=== PATIENT | female | born 1930 | race Caucasian/White ===

== ENCOUNTER 2017-05-10 08:13 | Inpatient (IN) ==
[2017-05-10] MEDS ORDERED: ALBUTEROL/IPRATROPIUM 2.5mg-0.5mg/3ml NEB AEROSOL ONE (08:29)
[2017-05-10] MEDS: SALINE FLUSH 10ml SYRINGE IVF PRN ×3 (08:41→20:10)
--- OUTSIDE RECORDS SUMMARY | 2017-05-10 08:44 | External Medical Summary | Referral Summary ---
:1930 Author Organization [facility] [address] [address] [place] [phone] Care Team Providers Name Role Phone Alan Butt V Primary Care Physician Encounter VC Date(s): 02/18/15 - 02/18/15 [facility] [address] [place] [phone] Discharge Diagnosis: Thrombocytosis Discharge Diagnosis: Dysuria Discharge Diagnosis: Asthma Discharge Diagnosis: Benign essential hypertension Discharge Diagnosis: GERD (gastroesophageal reflux disease) Discharge Diagnosis: Fatigue Discharge Diagnosis: Hyperlipidemia Discharge Disposition: 01-Home or Self Care Attending Physician: Alan Butt MD Admitting Physician: Alan Butt MD Vital Signs Most recent to oldest [Reference Range]: 1 Temperature Tympanic [36.6-38.1 degC] 36.8 degC (02/18/15 9:52 AM) Peripheral Pulse Rate [60-100 bpm] 69 bpm (02/18/15 9:52 AM) Blood Pressure [90-140/60-90 mmHg] 139/81 mmHg (02/18/15 9:52 AM) Problem List Condition Effective Dates Status Health Status Informant Asthma(Confirmed) Active Balance problem(Confirmed) Active Benign essential hypertension Active (disorder)(Confirmed) Hyperplastic polyps(Confirmed) Active Diverticulosis(Confirmed) Active Exacerbation of asthma Active (disorder)(Confirmed) Gastroesophageal reflux disease Resolved (disorder)(Confirmed) GERD (gastroesophageal reflux Active disease)(Confirmed) Hemorrhoids(Confirmed) Active Hypercholesterolemia(Confirmed) Active Hyperlipidemia(Confirmed) Active Hypertension(Confirmed) Active Obesity(Confirmed) Active patient Pure hypercholesterolemia Active (disorder)(Confirmed) Thrombocytosis-essential(Confirmed) Active Allergies, Adverse Reactions, Alerts No Known Medication Allergies Medications Advair Diskus 500 mcg-50 mcg inhalation powder 1 puffs, Inhalation, BID, # 60 Each, 11 Refill(s), Pharmacy: [facility] # [id number] Start Date: 02/18/15 Status: OrderedAspirin Low Dose 81 mg, Oral, Daily, 0 Refill(s) Start Date: 04/23/14 Status: OrderedCalcium 600+D 1 tabs, Oral, Daily, 0 Refill(s) Start Date: 04/23/14 Status: Orderedhydrochlorothiazide 25 mg oral tablet See Instructions, TAKE ONE TABLET BY MOUTH EVERY DAY, # 100 tabs, 1 Refill(s), eRx: [facility]#[id number], TAKE ONE TABLET BY MOUTH EVERY DAY Start Date: 09/17/14 Status: OrderedKlor-Con 10 oral tablet, extended release See Instructions, TAKE ONE TABLET BY MOUTH EVERY DAY, # 90 unknown unit, 1 Refill(s), eRx: [facility] #[id number], TAKE ONE TABLET BY MOUTH EVERY DAY Start Date: 03/12/15 Status: Orderedmultivitamin 1 tabs, Oral, Daily, 0 Refill(s) Start Date: 04/23/14 Status: OrderedNorvasc 5 mg oral tablet See Instructions, TAKE ONE TABLET BY MOUTH EVERY DAY, # 90 tabs, 11 Refill(s), eRx: [facility]#[id number], TAKE ONE TABLET BY MOUTH EVERY DAY Start Date: 09/16/14 Status: Orderedpravastatin 20 mg oral tablet See Instructions, TAKE ONE TABLET BY MOUTH EVERY DAY, # 90 tabs, 2 Refill(s), Pharmacy: [facility] #[id number], TAKE ONE TABLET BY MOUTH EVERY DAY Start Date: 05/20/14 Status: OrderedVitamin B-12 500 mcg, Oral, Daily, 0 Refill(s) Start Date: 04/23/14 Status: Ordered Results No data available for this section Immunizations Vaccine Date Refusal Reason influenza virus vaccine, inactivated 04/24/14 influenza virus vaccine, live 05/16/13 influenza virus vaccine, live 03/29/12 pneumococcal 13-valent conjugate vaccine 11/12/14 pneumococcal 23-polyvalent vaccine 05/14/07 tetanus-diphth toxoids (Td) adult/adol 05/18/08 zoster vaccine live 11/12/14 Procedures Procedure Date Related Diagnosis Body Site Colonoscopy 05/28/08 Polypectomy 11/20/08 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 Will increase her Advair Diskus back to 500/50 and she may use the albuterol on a when necessary basis. Benign essential hypertension Dysuria Check urinalysis Ordered: Urinalysis with Culture if Indicated Fatigue Ordered: Basic Metabolic Panel CBC w/ Differential TSH with Reflex Free T4 GERD (gastroesophageal reflux disease) Hyperlipidemia Ordered: Lipid Panel Thrombocytosis Orders: fluticasone-salmeterol, 1 puffs, Inhalation, BID, # 60 Each, 11 Refill(s), Pharmacy: [facility] #[id number] Check labs as above. She will come in fasting another day for those to be drawn. Otherwise continue present care. Follow-up 6 months if all goes well.
--- OUTSIDE RECORDS SUMMARY | 2017-05-10 08:44 | External Medical Summary | Referral Summary ---
:1930 Author Organization [facility], [facility] Address [address] [place] [address] [place] [phone] Care Team Providers Name Role Phone Alan Butt Zara Primary Care Physician Encounter VC Date(s): 04/04/16 - 04/04/16 [address] [address] [place] [phone] [place] Discharge Disposition: 01-Home or Self Care Attending Physician: Mustapha Rubin APRN Admitting Physician: Mustapha Rubin APRN Vital Signs Most recent to oldest [Reference Range]: 1 Temperature Tympanic [36.6-38.1 degC] 36.9 degC (04/04/16 10:11 AM) Peripheral Pulse Rate [60-100 bpm] 71 bpm (04/04/16 10:11 AM) Respiratory Rate [14-20 br/min] 16 br/min (04/04/16 10:11 AM) Blood Pressure [90-140/60-90 mmHg] 138/88 mmHg (04/04/16 10:11 AM) SpO2 97 % (04/04/16 10:11 AM) Problem List Condition Effective Dates Status Health Status Informant Asthma(Confirmed) < 05/04/14 Resolved Balance problem(Confirmed) Active Benign essential hypertension Active (disorder)(Confirmed) Hyperplastic polyps(Confirmed) Active Diverticulosis(Confirmed) Active Exacerbation of asthma Resolved (disorder)(Confirmed) Gastroesophageal reflux disease Resolved (disorder)(Confirmed) GERD (gastroesophageal reflux Active disease)(Confirmed) Hemorrhoids(Confirmed) < 05/04/14 Resolved Hypercholesterolemia(Confirmed) < 05/04/14 Resolved Hyperlipidemia(Confirmed) Active Hypertension(Confirmed) < 05/04/14 Resolved Obesity(Confirmed) Active patient Pure hypercholesterolemia Resolved (disorder)(Confirmed) Thrombocytosis-essential(Confirmed) Active Allergies, Adverse Reactions, Alerts No Known Medication Allergies Medications Advair Diskus 500 mcg-50 mcg inhalation powder 1 puffs, Inhalation, BID, # 60 Each, 11 Refill(s), Pharmacy: [facility] # [id number] Start Date: 02/22/16 Status: OrderedAspirin Low Dose 81 mg, Oral, Daily, 0 Refill(s) Start Date: 04/23/14 Status: OrderedCalcium 600+D 1 tabs, Oral, Daily, 0 Refill(s) Start Date: 04/23/14 Status: OrderedFosamax 70 mg oral tablet 70 mg 1 tabs, Oral, qWeek, # 12 tabs, 3 Refill(s), Pharmacy: [facility] # [id number], 1 tabs Oral qWeek Start Date: 02/22/16 Status: Orderedhydrochlorothiazide 25 mg oral tablet See Instructions, TAKE ONE TABLET BY MOUTH EVERY DAY, # 100 tabs, eRx: [facility] #[id number], TAKE ONE TABLET BY MOUTH EVERY DAY Start Date: 09/23/15 Status: OrderedKlor-Con 10 oral tablet, extended release See Instructions, TAKE ONE TABLET BY MOUTH EVERY DAY, # 90 unknown unit, 1 Refill(s), eRx: [facility] #[id number], TAKE ONE TABLET BY MOUTH EVERY DAY Start Date: 03/12/15 Status: Orderedmultivitamin 1 tabs, Oral, Daily, 0 Refill(s) Start Date: 04/23/14 Status: OrderedNorvasc 5 mg oral tablet See Instructions, TAKE ONE TABLET BY MOUTH EVERY DAY, # 90 tabs, 10 Refill(s), eRx: [facility]#[id number], TAKE ONE TABLET BY MOUTH EVERY DAY Start Date: 09/23/15 Status: Orderedpravastatin 40 mg oral tablet 40 mg 1 tabs, Oral, Daily, # 1 tabs, 0 Refill(s), other reason (Rx) Start Date: 02/24/16 Status: OrderedVitamin B-12 500 mcg, Oral, Daily, 0 Refill(s) Start Date: 04/23/14 Status: OrderedVitamin D3 0 Refill(s) Start Date: 09/27/15 Status: Ordered Results No data available for this section Immunizations Vaccine Date Refusal Reason influenza virus vaccine, inactivated 04/24/14 influenza virus vaccine, live 05/16/13 influenza virus vaccine, live 03/29/12 pneumococcal 13-valent conjugate vaccine 11/12/14 pneumococcal 23-polyvalent vaccine 05/14/07 tetanus-diphth toxoids (Td) adult/adol 05/18/08 zoster vaccine live 11/12/14 Procedures Procedure Date Related Diagnosis Body Site Colonoscopy 05/28/08 Polypectomy 05/28/08 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
--- OUTSIDE RECORDS SUMMARY | 2017-05-10 08:45 | External Medical Summary | Referral Summary ---
:1930 Author Organization [facility], [facility] Address [address] [place] [address] [place] [phone] Care Team Providers Name Role Phone Alan Butt V Primary Care Physician Encounter VC Date(s): 03/06/16 - 03/06/16 [address] [address] [place] [phone] [place] Discharge Disposition: 01-Home or Self Care Attending Physician: Mustapha Rubin APRN Admitting Physician: Mustapha Rubin APRN Vital Signs Most recent to oldest [Reference Range]: 1 Temperature Tympanic [36.6-38.1 degC] 36.9 degC (03/06/16 10:16 AM) Peripheral Pulse Rate [60-100 bpm] 72 bpm (03/06/16 10:16 AM) Respiratory Rate [14-20 br/min] 17 br/min (03/06/16 10:16 AM) Blood Pressure [90-140/60-90 mmHg] 128/78 mmHg (03/06/16 10:16 AM) SpO2 98 % (03/06/16 10:16 AM) Problem List Condition Effective Dates Status [...] BID, # 60 Each, 11 Refill(s), Pharmacy: [facility] # [id number] Start Date: 02/22/16 Status: OrderedAspirin Low Dose 81 mg, Oral, Daily, 0 Refill(s) Start Date: 04/23/14 Status: OrderedCalcium 600+D 1 tabs, Oral, Daily, 0 Refill(s) Start Date: 04/23/14 Status: OrderedFosamax 70 mg oral tablet 70 mg 1 tabs, Oral, qWeek, # 12 tabs, 3 Refill(s), Pharmacy: [facility] # [id number], 1 tabs Oral qWeek Start Date: 02/22/16 Status: Orderedhydrochlorothiazide 25 mg oral tablet See Instructions, TAKE ONE TABLET BY MOUTH EVERY DAY, # 100 tabs, eRx: [facility] #[id number], TAKE ONE TABLET BY MOUTH EVERY DAY Start Date: 09/23/15 Status: OrderedKlor-Con 10 oral tablet, extended release See Instructions, TAKE ONE TABLET BY MOUTH EVERY DAY, # 90 unknown unit, 1 Refill(s), eRx: [facility] #[id number], TAKE ONE TABLET BY MOUTH EVERY DAY Start Date: 03/12/15 Status: Orderedmultivitamin 1 tabs, Oral, Daily, 0 Refill(s) Start Date: 04/23/14 Status: OrderedNorvasc 5 mg oral tablet See Instructions, TAKE ONE TABLET BY MOUTH EVERY DAY, # 90 tabs, 10 Refill(s), eRx: [facility]#[id number], TAKE ONE TABLET BY MOUTH EVERY DAY [...]
--- OUTSIDE RECORDS SUMMARY | 2017-05-10 08:45 | External Medical Summary | Referral Summary ---
:1930 Author Organization [facility], [facility] Address [address] [place] [address] [place] [phone] Care Team Providers Name Role Phone Alan Butt V Primary Care Physician Encounter VC Date(s): 02/22/16 - 02/22/16 [address] [place] [phone]- Discharge Diagnosis: Thyroid nodule Discharge Diagnosis: Benign essential hypertension Discharge Diagnosis: GERD (gastroesophageal reflux disease) Discharge Diagnosis: Osteoporosis Discharge Diagnosis: Mild persistent stable asthma Discharge Diagnosis: Hyperlipidemia Discharge Diagnosis: Obesity Discharge Diagnosis: Senile atrophic vaginitis Discharge Disposition: 01-Home or Self Care Attending Physician: Alan Butt MD Admitting Physician: Alan Butt MD Vital Signs Most recent to oldest [Reference Range]: 1 Temperature Tympanic [36.6-38.1 degC] 36.2 degC *LOW* (02/22/16 9:00 AM) Peripheral Pulse Rate [60-100 bpm] 84 bpm (02/22/16 9:00 AM) Blood Pressure [90-140/60-90 mmHg] 142/84 mmHg *HI* (02/22/16 9:00 AM) Problem List Condition Effective Dates Status [...] BID, # 60 Each, 11 Refill(s), Pharmacy: [facility] # [id number] Start Date: 02/22/16 Status: OrderedAspirin Low Dose 81 mg, Oral, Daily, 0 Refill(s) Start Date: 04/23/14 Status: OrderedCalcium 600+D 1 tabs, Oral, Daily, 0 Refill(s) Start Date: 04/23/14 Status: OrderedFosamax 70 mg oral tablet 70 mg 1 tabs, Oral, qWeek, # 12 tabs, 3 Refill(s), Pharmacy: [facility] # [id number], 1 tabs Oral qWeek Start Date: 02/22/16 Status: Orderedhydrochlorothiazide 25 mg oral tablet See Instructions, TAKE ONE TABLET BY MOUTH EVERY DAY, # 100 tabs, eRx: [facility] #[id number], TAKE ONE TABLET BY MOUTH EVERY DAY Start Date: 09/23/15 Status: OrderedKlor-Con 10 oral tablet, extended release See Instructions, TAKE ONE TABLET BY MOUTH EVERY DAY, # 90 unknown unit, 1 Refill(s), eRx: [facility] #[id number], TAKE ONE TABLET BY MOUTH EVERY DAY Start Date: 03/12/15 Status: Orderedmultivitamin 1 tabs, Oral, Daily, 0 Refill(s) Start Date: 04/23/14 Status: OrderedNorvasc 5 mg oral tablet See Instructions, TAKE ONE TABLET BY MOUTH EVERY DAY, # 90 tabs, 10 Refill(s), eRx: [facility]#[id number], TAKE ONE TABLET BY MOUTH EVERY DAY Start Date: 09/23/15 Status: OrderedNorvasc 5 mg oral tablet See Instructions, TAKE ONE TABLET BY MOUTH EVERY DAY, # 90 tabs, 11 Refill(s), eRx: [facility]#[id number], TAKE ONE TABLET BY MOUTH EVERY DAY Start Date: 09/16/14 Status: Orderedpravastatin 20 mg oral tablet See Instructions, TAKE ONE TABLET BY MOUTH DAILY, # 90 tabs, 1 Refill(s), eRx: [facility] #[id number], TAKE ONE TABLET BY MOUTH DAILY Start Date: 11/30/15 Status: OrderedVitamin B-12 500 mcg, Oral, Daily, 0 Refill(s) Start Date: 04/23/14 Status: OrderedVitamin D3 0 Refill(s) Start Date: 09/27/15 Status: Ordered Results Chemistry Most recent to oldest [Reference Range]: 1 Sodium Lvl [135-144 mEq/L] 141 mEq/L (02/22/16 9:54 AM) Potassium Lvl [3.5-5.2 mEq/L] 4.4 mEq/L (02/22/16 9:54 AM) Chloride [99-111 mEq/L] 105 mEq/L (02/22/16 9:54 AM) CO2 [22-31 mEq/L] 27 mEq/L (02/22/16 9:54 AM) AGAP [3-20] 9 (02/22/16 9:54 AM) BUN [10-20 mg/dL] 19 mg/dL (02/22/16 9:54 AM) Glucose Lvl [70-99 mg/dL] 97 mg/dL (02/22/16 9:54 AM) Creatinine Lvl [0.57-1.11 mg/dL] 0.85 mg/dL (02/22/16 9:54 AM) eGFR [>60 mL/min] >60 mL/min 1 (02/22/16 9:54 AM) Calcium Lvl [8.9-10.5 mg/dL] 9.6 mg/dL (02/22/16 9:54 AM) Chol [0-199 mg/dL] 216 mg/dL *HI* (02/22/16 9:54 AM) Trig [0-149 mg/dL] 101 mg/dL (02/22/16 9:54 AM) HDL [40-84 mg/dL] 56 mg/dL (02/22/16 9:54 AM) LDL [0-130 mg/dL] 140 mg/dL *HI* (02/22/16 9:54 AM) VLDL Cholesterol [0-28 mg/dL] 20 mg/dL (02/22/16 9:54 AM) Cardiac Risk [0.0-5.0] 3.9 (02/22/16 9:54 AM) TSH with Reflex Free T4 [0.35-4.94] 2.48 (02/22/16 9:54 AM) 1Result Comment: Multiply eGFR results by 1.21 for race. Immunizations Vaccine Date Refusal Reason influenza virus vaccine, inactivated 04/24/14 influenza virus vaccine, live 05/16/13 influenza virus vaccine, live 03/29/12 pneumococcal 13-valent conjugate vaccine 11/12/14 pneumococcal 23-polyvalent vaccine 05/14/07 tetanus-diphth toxoids (Td) adult/adol 05/18/08 zoster vaccine live 11/12/14 Procedures Procedure Date Related Diagnosis Body Site Colonoscopy 05/28/08 Polypectomy 05/28/08 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 Colonoscopy 1998 Tonsillectomy 1939 Cataract extraction bilateral ORIF - Open reduction and internal fixation of fracture Lt leg Social History Social History Type Response Smoking Status Never smoker Assessment and Plan Extracted from: Title: 6 Month CDM Author: Alan Butt MD Date: 02/22/16 Impression and Plan Diagnosis Thyroid nodule (BPY21-UI E04.1, Discharge, Medical). Senile atrophic vaginitis (OLF56-ZP N95.2, Discharge, Medical). Osteoporosis (KOU66-NR M81.0, Discharge, Medical). Obesity (RMZ21-EQ E66.9, Discharge, Medical). Mild persistent stable asthma (TOA62-FQ J45.30, Discharge, Medical). Hyperlipidemia (BYP95-HK E78.5, Discharge, Medical). GERD (gastroesophageal reflux disease) (DFU38-NQ K21.9, Discharge, Medical). Benign essential hypertension (YZP11-IF I10, Discharge, Medical). Orders Orders (Selected) Outpatient Orders Future (On Hold) BMP: Fasting Lipid Profile: TSH with Reflex Free T4: Vitamin D 25 Hydroxy Level: Prescriptions Prescribed Advair Diskus 500 mcg-50 mcg inhalation powder: 1 puffs, Inhalation, BID, 60 Each, 11 Refill(s) Fosamax 70 mg oral tablet: 70 mg=1 tabs, Oral, qWeek, 12 tabs, 3 Refill(s).
--- OUTSIDE RECORDS SUMMARY | 2017-05-10 08:45 | External Medical Summary | Referral Summary ---
:1930 Author Organization [facility] [address] [place] [phone] Care Team Providers Name Role Phone Alan Butt V Primary Care Physician Encounter VC Date(s): 02/18/15 - 02/18/15 [facility] [address] [address] [place] [phone] [place] Discharge Diagnosis: [...] BID, # 60 Each, 11 Refill(s), Pharmacy: [facility] # [id number] Start Date: 02/18/15 Status: OrderedAspirin Low Dose 81 mg, Oral, Daily, 0 Refill(s) Start Date: 04/23/14 Status: OrderedCalcium 600+D 1 tabs, Oral, Daily, 0 Refill(s) Start Date: 04/23/14 Status: Orderedhydrochlorothiazide 25 mg oral tablet See Instructions, TAKE ONE TABLET BY MOUTH EVERY DAY, # 100 tabs, 1 Refill(s), eRx: [facility]#[id number], TAKE ONE TABLET BY MOUTH EVERY DAY Start Date: 09/17/14 Status: OrderedKlor-Con 10 oral tablet, extended release See Instructions, TAKE ONE TABLET BY MOUTH EVERY DAY, # 90 unknown unit, 1 Refill(s), eRx: [facility] #[id number], TAKE ONE TABLET BY MOUTH EVERY DAY Start Date: 03/12/15 Status: Orderedmultivitamin 1 tabs, Oral, Daily, 0 Refill(s) Start Date: 04/23/14 Status: OrderedNorvasc 5 mg oral tablet See Instructions, TAKE ONE TABLET BY MOUTH EVERY DAY, # 90 tabs, 11 Refill(s), eRx: [facility]#[id number], TAKE ONE TABLET BY MOUTH EVERY DAY Start Date: 09/16/14 Status: Orderedpravastatin 20 mg oral tablet See Instructions, TAKE ONE TABLET BY MOUTH EVERY DAY, # 90 tabs, 2 Refill(s), Pharmacy: [facility] #[id number], TAKE ONE TABLET BY MOUTH EVERY DAY [...] BID, # 60 Each, 11 Refill(s), Pharmacy: [facility] #[id number] Check labs as above. She will come in fasting another day for those to be drawn. Otherwise continue present care. Follow-up 6 months if all goes well.
--- OUTSIDE RECORDS SUMMARY | 2017-05-10 08:45 | External Medical Summary | Referral Summary ---
:1930 Author Organization [facility], [facility] Address [address] [place] [address] [place] [phone] Care Team Providers Name Role Phone Alan Butt V Primary Care Physician Encounter VC Date(s): 09/27/15 - 09/27/15 [address] [address] [place] [phone] [place] Discharge Diagnosis: Senile atrophic vaginitis Discharge Disposition: 01-Home or Self Care Attending Physician: Alan Butt MD Admitting Physician: Alan Butt MD Vital Signs Most recent to oldest [Reference Range]: 1 Temperature Tympanic [36.6-38.1 degC] 36.8 degC (09/27/15 2:33 PM) Peripheral Pulse Rate [60-100 bpm] 89 bpm (09/27/15 2:33 PM) Blood Pressure [90-140/60-90 mmHg] 120/65 mmHg (09/27/15 2:33 PM) SpO2 96 % (09/27/15 2:33 PM) Problem List Condition Effective Dates Status Health Status Informant Asthma(Confirmed) < 05/04/14 Resolved Balance problem(Confirmed) Active Benign essential hypertension Active (disorder)(Confirmed) Hyperplastic polyps(Confirmed) Active Diverticulosis(Confirmed) Active Exacerbation of asthma Active (disorder)(Confirmed) Gastroesophageal reflux disease Resolved (disorder)(Confirmed) GERD (gastroesophageal reflux Active disease)(Confirmed) Hemorrhoids(Confirmed) < 05/04/14 Resolved Hypercholesterolemia(Confirmed) < 05/04/14 Resolved Hyperlipidemia(Confirmed) < 05/04/14 Resolved Hypertension(Confirmed) < 05/04/14 Resolved Obesity(Confirmed) Active patient Pure hypercholesterolemia Resolved (disorder)(Confirmed) Thrombocytosis-essential(Confirmed) Active Allergies, Adverse Reactions, Alerts No Known Medication Allergies Medications Advair Diskus 500 mcg-50 mcg inhalation powder 1 puffs, Inhalation, BID, # 60 Each, 11 Refill(s), Pharmacy: [facility] # [id number] Start Date: 05/26/15 Status: OrderedAspirin Low Dose 81 mg, Oral, Daily, 0 Refill(s) Start Date: 04/23/14 Status: OrderedCalcium 600+D 1 tabs, Oral, Daily, 0 Refill(s) Start Date: 04/23/14 Status: Orderedhydrochlorothiazide 25 mg oral tablet See Instructions, TAKE ONE TABLET BY MOUTH EVERY DAY, # 100 tabs, eRx: [facility] #[id number], TAKE ONE TABLET BY MOUTH EVERY DAY Start Date: 09/23/15 Status: OrderedKlor-Con 10 oral tablet, extended release See Instructions, TAKE ONE TABLET BY MOUTH EVERY DAY, # 90 unknown unit, 1 Refill(s), eRx: [facility] #[id number], TAKE ONE TABLET BY MOUTH EVERY DAY Start Date: 03/12/15 Status: Orderedmeclizine 12.5 mg oral tablet mg tabs, Oral, TID, 0 Refill(s) Start Date: 09/27/15 Status: Orderedmultivitamin 1 tabs, Oral, Daily, 0 Refill(s) Start Date: 04/23/14 Status: OrderedNorvasc 5 mg oral tablet See Instructions, TAKE ONE TABLET BY MOUTH EVERY DAY, # 90 tabs, 10 Refill(s), eRx: [facility]#[id number], TAKE ONE TABLET BY MOUTH EVERY DAY Start Date: 09/23/15 Status: OrderedNorvasc 5 mg oral tablet See Instructions, TAKE ONE TABLET BY MOUTH EVERY DAY, # 90 tabs, 11 Refill(s), eRx: [facility]#[id number], TAKE ONE TABLET BY MOUTH EVERY DAY Start Date: 09/16/14 Status: Orderedpravastatin 20 mg oral tablet See Instructions, TAKE ONE TABLET BY MOUTH EVERY DAY, # 90 tabs, 2 Refill(s), Pharmacy: [facility] #[id number], TAKE ONE TABLET BY MOUTH EVERY DAY Start Date: 05/20/14 Status: OrderedPremarin 0.625 mg/g vaginal cream with applicator 0.5 g, Vaginal, qPM, Use once daily for 2 weeks, # 42 g, 0 Refill(s), Pharmacy: [facility] #[id number] Start Date: 09/27/15 Status: OrderedVitamin B-12 500 mcg, Oral, Daily, 0 Refill(s) Start Date: 04/23/14 Status: OrderedVitamin D3 0 Refill(s) Start Date: 09/27/15 Status: Ordered Results Urinalysis Most recent to oldest [Reference Range]: 1 UA Color Yellow (09/27/15 2:34 PM) UA Appear Sl Cloudy (09/27/15 2:34 PM) UA pH [5.0-8.0] 6.0 (09/27/15 2:34 PM) UA Leuk Est [Negative] Negative (09/27/15 2:34 PM) UA Nitrite [Negative] Negative (09/27/15 2:34 PM) UA Protein [Negative] Negative (09/27/15 2:34 PM) UA Glucose [Negative] Negative (09/27/15 2:34 PM) UA Ketones [Negative] Negative (09/27/15 2:34 PM) UA Urobilinogen [<=1.0 mg/dL] 0.2 mg/dL (09/27/15 2:34 PM) UA Bili [Negative] Negative (09/27/15 2:34 PM) UA Blood [Negative] Negative (09/27/15 2:34 PM) UA Spec Grav [1.003-1.030] 1.015 (09/27/15 2:34 PM) Type Clean Catch (09/27/15 2:34 PM) Immunizations Vaccine Date Refusal Reason influenza virus [...] Visit Note Author: Alan Butt MD Date: 09/27/15 Assessment/Plan Senile atrophic vaginitis Urinary frequency Orders: conjugated estrogens topical, 0.5 g, Vaginal, qPM, Use once daily for 2 weeks, # 42 g, 0 Refill(s), Pharmacy: [facility] #[id number] Urinalysis was negative for signs of infection. I think her symptoms are likely due to external irritation from atrophic vaginitis. We discussed use of Premarin cream and potential for uterine stim ulation. We'll plan to use it for fairly limited time in the hopes of getting some improvement in symptomatology without stimulating endometrial development. Prescription provided. Follow-up if no t better next few weeks with this approach. Plan to stop the Premarin cream and 2-4 weeks.
--- OUTSIDE RECORDS SUMMARY | 2017-05-10 08:45 | External Medical Summary | Referral Summary ---
:1930 Author Organization [facility] [address] [place] [phone] Care Team Providers Name Role Phone Alan Butt V Primary Care Physician Encounter VC Date(s): 02/18/15 - 02/18/15 [facility] [address] [place] [phone]- Discharge Diagnosis: Thrombocytosis Discharge Diagnosis: Dysuria Discharge [...] BID, # 60 Each, 11 Refill(s), Pharmacy: [facility] # [id number] Start Date: 02/18/15 Status: OrderedAspirin Low Dose 81 mg, Oral, Daily, 0 Refill(s) Start Date: 04/23/14 Status: OrderedCalcium 600+D 1 tabs, Oral, Daily, 0 Refill(s) Start Date: 04/23/14 Status: Orderedhydrochlorothiazide 25 mg oral tablet See Instructions, TAKE ONE TABLET BY MOUTH EVERY DAY, # 100 tabs, 1 Refill(s), eRx: [facility]#[id number], TAKE ONE TABLET BY MOUTH EVERY DAY Start Date: 09/17/14 Status: OrderedKlor-Con 10 oral tablet, extended release See Instructions, TAKE ONE TABLET BY MOUTH EVERY DAY, # 90 unknown unit, 1 Refill(s), eRx: [facility] #[id number], TAKE ONE TABLET BY MOUTH EVERY DAY Start Date: 03/12/15 Status: Orderedmultivitamin 1 tabs, Oral, Daily, 0 Refill(s) Start Date: 04/23/14 Status: OrderedNorvasc 5 mg oral tablet See Instructions, TAKE ONE TABLET BY MOUTH EVERY DAY, # 90 tabs, 11 Refill(s), eRx: [facility]#[id number], TAKE ONE TABLET BY MOUTH EVERY DAY Start Date: 09/16/14 Status: Orderedpravastatin 20 mg oral tablet See Instructions, TAKE ONE TABLET BY MOUTH EVERY DAY, # 90 tabs, 2 Refill(s), Pharmacy: [facility] #[id number], TAKE ONE TABLET BY MOUTH EVERY DAY [...] BID, # 60 Each, 11 Refill(s), Pharmacy: [facility] #[id number] Check labs as above. She will come in fasting another day for those to be drawn. Otherwise continue present care. Follow-up 6 months if all goes well.
--- OUTSIDE RECORDS SUMMARY | 2017-05-10 08:45 | External Medical Summary | Referral Summary ---
:1930 Author Organization [facility], [facility] Address [address] [place] [address] [place] [phone] Care Team Providers Name Role Phone Alan Butt V Primary Care Physician Encounter VC Date(s): 05/02/16 - 05/02/16 [facility] [address] [place] [phone] [place] Discharge Disposition: 01-Home or Self Care Attending Physician: Mustapha Rubin APRN Admitting Physician: Mustapha Rubin APRN Vital Signs Most recent to oldest [Reference Range]: 1 Peripheral Pulse Rate [60-100 bpm] 58 bpm *LOW* (05/02/16 8:30 AM) Blood Pressure [90-140/60-90 mmHg] 116/68 mmHg (05/02/16 8:30 AM) SpO2 97 % (05/02/16 8:30 AM) Problem List Condition Effective Dates Status [...] BID, # 60 Each, 11 Refill(s), Pharmacy: [facility] # [id number] Start Date: 02/22/16 Status: OrderedAspirin Low Dose 81 mg, Oral, Daily, 0 Refill(s) Start Date: 04/23/14 Status: OrderedCalcium 600+D 1 tabs, Oral, Daily, 0 Refill(s) Start Date: 04/23/14 Status: OrderedFosamax 70 mg oral tablet 70 mg 1 tabs, Oral, qWeek, # 12 tabs, 3 Refill(s), Pharmacy: [facility] # [id number], 1 tabs Oral qWeek Start Date: 02/22/16 Status: Orderedhydrochlorothiazide 25 mg oral tablet See Instructions, TAKE ONE TABLET BY MOUTH EVERY DAY, # 100 tabs, eRx: [facility] #[id number], TAKE ONE TABLET BY MOUTH EVERY DAY Start Date: 04/17/16 Status: OrderedKlor-Con 10 oral tablet, extended release See Instructions, TAKE ONE TABLET BY MOUTH EVERY DAY, # 90 unknown unit, 1 Refill(s), eRx: [facility] #[id number], TAKE ONE TABLET BY MOUTH EVERY DAY Start Date: 03/12/15 Status: Orderedmultivitamin 1 tabs, Oral, Daily, 0 Refill(s) Start Date: 04/23/14 Status: OrderedNorvasc 5 mg oral tablet See Instructions, TAKE ONE TABLET BY MOUTH EVERY DAY, # 90 tabs, 10 Refill(s), eRx: [facility]#[id number], TAKE ONE TABLET BY MOUTH EVERY DAY [...]
--- OUTSIDE RECORDS SUMMARY | 2017-05-10 08:45 | External Medical Summary | Referral Summary ---
:1930 Author Organization [facility] [address] [place] [phone] Care Team Providers Name Role Phone Alan Butt V Primary Care Physician Encounter VC Date(s): 11/12/14 - 11/12/14 [facility] [address] [place] [phone] [place] Discharge Diagnosis: Benign essential hypertension Discharge Diagnosis: Pneumonia Discharge Diagnosis: Asthma Discharge Diagnosis: Need for pneumococcal vaccination Discharge Diagnosis: Need for diphtheria, tetanus, acellular pertussis, haemophilus influenzae, and hepatitis B virus vaccine Discharge Diagnosis: Balance problem Discharge Disposition: 01-Home or Self Care Attending Physician: Alan Butt MD Admitting Physician: Alan Butt MD Referring Physician: Alan Butt MD Vital Signs Most recent to oldest [Reference Range]: 1 Temperature Tympanic [36.6-38.1 degC] 36.4 degC *LOW* (11/12/14 1:35 PM) Peripheral Pulse Rate [60-100 bpm] 72 bpm (11/12/14 1:35 PM) Blood Pressure [90-140/60-90 mmHg] 154/89 mmHg *HI* (11/12/14 1:35 PM) Problem List Condition Effective Dates Status [...] BID, # 60 Each, 11 Refill(s), Pharmacy: [facility] # [id number] Start Date: 02/18/15 Status: OrderedAspirin Low Dose 81 mg, Oral, Daily, 0 Refill(s) Start Date: 04/23/14 Status: OrderedCalcium 600+D 1 tabs, Oral, Daily, 0 Refill(s) Start Date: 04/23/14 Status: Orderedhydrochlorothiazide 25 mg oral tablet See Instructions, TAKE ONE TABLET BY MOUTH EVERY DAY, # 100 tabs, 1 Refill(s), eRx: [facility]#[id number], TAKE ONE TABLET BY MOUTH EVERY DAY Start Date: 09/17/14 Status: OrderedKlor-Con 10 oral tablet, extended release See Instructions, TAKE ONE TABLET BY MOUTH EVERY DAY, # 90 unknown unit, 1 Refill(s), eRx: [facility] #[id number], TAKE ONE TABLET BY MOUTH EVERY DAY Start Date: 03/12/15 Status: Orderedmultivitamin 1 tabs, Oral, Daily, 0 Refill(s) Start Date: 04/23/14 Status: OrderedNorvasc 5 mg oral tablet See Instructions, TAKE ONE TABLET BY MOUTH EVERY DAY, # 90 tabs, 11 Refill(s), eRx: [facility]#[id number], TAKE ONE TABLET BY MOUTH EVERY DAY Start Date: 09/16/14 Status: Orderedpravastatin 20 mg oral tablet See Instructions, TAKE ONE TABLET BY MOUTH EVERY DAY, # 90 tabs, 2 Refill(s), Pharmacy: [facility] #[id number], TAKE ONE TABLET BY MOUTH EVERY DAY [...] Visit Note Author: Alan Butt MD Date: 11/12/14 Assessment/Plan Asthma Possible COPD. We discussed these diagnoses. Overall she is doing well on current regimen. We'll plan repeat chest x-ray (as already scheduled) and will about one month. If this is ok ay pulmonary function tests might add a little bit to our understanding and be a baseline for future comparison. Balance problem With some degree of leg weakness. She has increased risk of falling and will refer for PT evaluation to try to decrease fall risk. Benign essential hypertension Today's reading was a bit elevated. Encouraged home monitoring. She already has follow-up scheduled in a few months. Follow-up at that time or sooner if needed. We did go ahead with Zostavax and Prevnar vaccines today.
--- OUTSIDE RECORDS SUMMARY | 2017-05-10 08:48 | External Medical Summary | Referral Summary ---
:1930 Author Organization [facility] Address [address] [place] [address] [place] [phone] Care Team Providers Name Role Phone Alan Butt V Primary Care Physician Encounter VC Date(s): 11/19/14 - 11/19/14 [facility] [address] [place] [phone] [place] Discharge Diagnosis: Bronchitis Discharge Diagnosis: Exacerbation of persistent asthma Discharge Disposition: 01-Home or Self Care Attending Physician: Alan Butt MD Admitting Physician: Alan Butt MD Vital Signs Most recent to oldest [Reference Range]: 1 Temperature Tympanic [36.6-38.1 degC] 36.7 degC (11/19/14 1:35 PM) Peripheral Pulse Rate [60-100 bpm] 69 bpm (11/19/14 1:35 PM) Blood Pressure [90-140/60-90 mmHg] 145/85 mmHg *HI* (11/19/14 1:35 PM) SpO2 95 % (11/19/14 1:35 PM) Problem List Condition Effective Dates [...] BID, # 60 Each, 11 Refill(s), Pharmacy: [facility] # [id number] Start Date: 05/26/15 Status: OrderedAspirin Low Dose 81 mg, Oral, Daily, 0 Refill(s) Start Date: 04/23/14 Status: OrderedCalcium 600+D 1 tabs, Oral, Daily, 0 Refill(s) Start Date: 04/23/14 Status: Orderedhydrochlorothiazide 25 mg oral tablet See Instructions, TAKE ONE TABLET BY MOUTH EVERY DAY, # 100 tabs, 1 Refill(s), eRx: [facility]#[id number], TAKE ONE TABLET BY MOUTH EVERY DAY Start Date: 09/17/14 Status: OrderedKlor-Con 10 oral tablet, extended release See Instructions, TAKE ONE TABLET BY MOUTH EVERY DAY, # 90 unknown unit, 1 Refill(s), eRx: [facility] #[id number], TAKE ONE TABLET BY MOUTH EVERY DAY Start Date: 03/12/15 Status: Orderedmultivitamin 1 tabs, Oral, Daily, 0 Refill(s) Start Date: 04/23/14 Status: OrderedNorvasc 5 mg oral tablet See Instructions, TAKE ONE TABLET BY MOUTH EVERY DAY, # 90 tabs, 11 Refill(s), eRx: [facility]#[id number], TAKE ONE TABLET BY MOUTH EVERY DAY Start Date: 09/16/14 Status: Orderedpravastatin 20 mg oral tablet See Instructions, TAKE ONE TABLET BY MOUTH EVERY DAY, # 90 tabs, 2 Refill(s), Pharmacy: [facility] #[id number], TAKE ONE TABLET BY MOUTH EVERY DAY Start Date: 05/20/14 Status: OrderedpredniSONE 5 mg oral tablet See Instructions, 40mg daily x 3 then 20mg daily x 3 then 10mg daily x 3 then 5mg daily x 3 then stop, # 45 tabs, 0 Refill(s), Pharmacy: [facility] # [id number], 40mg daily x 3 then; 20mg daily x 3then; 10mg daily x 3 then; 5mg daily x 3 then stop Start Date: 05/27/15 Stop Date: 06/08/15 Status: OrderedVitamin B-12 500 mcg, Oral, Daily, [...] 05/28/08 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 I advised if she is not better in 48 hours she should follow -up. Management today included amoxicillin , steroid Dosepak, and I boosted her Advair from 250/50 up to 500/50. Refill provided on her albuterol rescue inhaler. Follow-up if not better in 48 hours , sooner if more acute symptoms. Primary Impairment Categories Preadmission Data
--- OUTSIDE RECORDS SUMMARY | 2017-05-10 08:49 | External Medical Summary | Referral Summary ---
:1930 Author Organization [facility], [facility] Address [address] [place] [address] [place] [phone] Care Team Providers Name Role Phone Alan Butt V Primary Care Physician Encounter VC Date(s): 08/28/16 - 08/28/16 [address] [facility] [address] [place] [phone]- Discharge Diagnosis: Benign essential hypertension Discharge Diagnosis: Mild persistent stable asthma Discharge Diagnosis: GERD (gastroesophageal reflux disease) Discharge Diagnosis: Hyperlipidemia Discharge Disposition: 01-Home or Self Care Attending Physician: Alan Butt MD Admitting Physician: Alan Butt MD Vital Signs Most recent to oldest [Reference Range]: 1 Peripheral Pulse Rate [60-100 bpm] 76 bpm (08/28/16 3:24 PM) Respiratory Rate [14-20 br/min] 20 br/min (08/28/16 3:24 PM) Blood Pressure [90-140/60-90 mmHg] 122/68 mmHg (08/28/16 3:24 PM) SpO2 96 % (08/28/16 3:24 PM) Problem List Condition Effective Dates Status Health Status Informant Asthma(Confirmed) < 05/04/14 Resolved Balance problem(Confirmed) Active Benign essential hypertension Active (disorder)(Confirmed) Hyperplastic polyps(Confirmed) Active Diverticulosis(Confirmed) Active Exacerbation of asthma Resolved (disorder)(Confirmed) Gastroesophageal reflux disease Resolved (disorder)(Confirmed) GERD (gastroesophageal reflux Active disease)(Confirmed) Hemorrhoids(Confirmed) < 05/04/14 Resolved Hypercholesterolemia(Confirmed) < 05/04/14 Resolved Hyperlipidemia(Confirmed) Active Hypertension(Confirmed) < 05/04/14 Resolved Mild persistent stable Active asthma(Confirmed) Obesity(Confirmed) Active patient Pure hypercholesterolemia Resolved (disorder)(Confirmed) Thrombocytosis-essential(Confirmed) Active Allergies, Adverse Reactions, Alerts No Known Medication Allergies Medications Advair Diskus 500 mcg-50 mcg inhalation powder 1 puffs, Inhalation, BID, # 60 Each, 11 Refill(s), Pharmacy: [facility] # [id number] Start Date: 08/28/16 Status: OrderedAspirin Low Dose 81 mg, Oral, Daily, 0 Refill(s) Start Date: 04/23/14 Status: OrderedCalcium 600+D 1 tabs, Oral, Daily, 0 Refill(s) Start Date: 04/23/14 Status: Orderedhydrochlorothiazide 25 mg oral tablet See Instructions, TAKE ONE TABLET BY MOUTH EVERY DAY, # 100 tabs, eRx: [facility] #[id number], TAKE ONE TABLET BY MOUTH EVERY DAY Start Date: 04/17/16 Status: OrderedKlor-Con 10 oral tablet, extended release See Instructions, TAKE ONE TABLET BY MOUTH EVERY DAY, # 90 unknown unit, 1 Refill(s), eRx: [facility] #[id number], TAKE ONE TABLET BY MOUTH EVERY DAY Start Date: 03/12/15 Status: Orderedmultivitamin 1 tabs, Oral, Daily, 0 Refill(s) Start Date: 04/23/14 Status: OrderedNorvasc 5 mg oral tablet See Instructions, TAKE ONE TABLET BY MOUTH EVERY DAY, # 90 tabs, 10 Refill(s), eRx: [facility]#[id number], TAKE ONE TABLET BY MOUTH EVERY DAY Start Date: 09/23/15 Status: Orderedpravastatin 40 mg oral tablet 40 mg 1 tabs, Oral, Daily, # 90 tabs, 3 Refill(s), Pharmacy: [facility] # [id number], 1 tabs Oral Daily,x90 days Start Date: 08/28/16 Stop Date: 08/23/17 Status: OrderedVitamin B-12 500 mcg, Oral, Daily, 0 Refill(s) Start Date: 04/23/14 Status: OrderedVitamin D3 0 Refill(s) Start Date: 09/27/15 Status: Ordered Results No data available for this section Immunizations Given and Recorded Vaccine Date Status Refusal Reason influenza virus vaccine, inactivated 04/24/14 Recorded influenza virus vaccine, live 05/16/13 Given influenza virus vaccine, live 03/29/12 Given pneumococcal 13-valent conjugate vaccine 11/12/14 Given pneumococcal 23-polyvalent vaccine 05/14/07 Recorded tetanus-diphth toxoids (Td) adult/adol1 05/18/08 Given tetanus-diphth toxoids (Td) adult/adol 05/18/08 Recorded zoster vaccine live 11/12/14 Given 1Result Comment: [05/04/2014 Uncharted] error jjl Procedures Procedure Date Related Diagnosis Body Site Colonoscopy 05/28/08 Polypectomy 05/28/08 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 Benign essential hypertension (DVZ25-CO I10, Discharge, Medical). Mild persistent stable asthma (KQD29-KB J45.30, Discharge, Medical). GERD (gastroesophageal reflux disease) (FBQ22-ET K21.9, Discharge, Medical). Orders Orders (Selected) Outpatient Orders Future (On Hold) BMP: CPK: Prescriptions Prescribed Advair Diskus 500 mcg-50 mcg inhalation powder: 1 puffs, Inhalation, BID, 60 Each, 11 Refill(s) pravastatin 40 mg oral tablet: 40 mg=1 tabs, Oral, Daily, for 90 days, 90 tabs , 3 Refill(s).
--- OUTSIDE RECORDS SUMMARY | 2017-05-10 08:52 | External Medical Summary | Referral Summary ---
:1930 Author Organization [facility] [address] [place] [phone] Care Team Providers Name Role Phone Alan Butt V Primary Care Physician Encounter VC Date(s): 11/12/14 - 11/12/14 [facility] [address] [place] [phone]- Discharge Diagnosis: Benign essential hypertension Discharge Diagnosis: [...] BID, # 60 Each, 11 Refill(s), Pharmacy: [facility] # [id number] Start Date: 02/18/15 Status: OrderedAspirin Low Dose 81 mg, Oral, Daily, 0 Refill(s) Start Date: 04/23/14 Status: OrderedCalcium 600+D 1 tabs, Oral, Daily, 0 Refill(s) Start Date: 04/23/14 Status: Orderedhydrochlorothiazide 25 mg oral tablet See Instructions, TAKE ONE TABLET BY MOUTH EVERY DAY, # 100 tabs, 1 Refill(s), eRx: [facility]#[id number], TAKE ONE TABLET BY MOUTH EVERY DAY Start Date: 09/17/14 Status: OrderedKlor-Con 10 oral tablet, extended release See Instructions, TAKE ONE TABLET BY MOUTH EVERY DAY, # 90 unknown unit, 1 Refill(s), eRx: [facility] #[id number], TAKE ONE TABLET BY MOUTH EVERY DAY Start Date: 03/12/15 Status: Orderedmultivitamin 1 tabs, Oral, Daily, 0 Refill(s) Start Date: 04/23/14 Status: OrderedNorvasc 5 mg oral tablet See Instructions, TAKE ONE TABLET BY MOUTH EVERY DAY, # 90 tabs, 11 Refill(s), eRx: [facility]#[id number], TAKE ONE TABLET BY MOUTH EVERY DAY Start Date: 09/16/14 Status: Orderedpravastatin 20 mg oral tablet See Instructions, TAKE ONE TABLET BY MOUTH EVERY DAY, # 90 tabs, 2 Refill(s), Pharmacy: [facility] #[id number], TAKE ONE TABLET BY MOUTH EVERY DAY [...]
--- OUTSIDE RECORDS SUMMARY | 2017-05-10 08:52 | External Medical Summary | Referral Summary ---
:1930 Author Organization [facility], [facility] Address [address] [place] [address] [place] [phone] Care Team Providers Name Role Phone Alan Butt V Primary Care Physician Encounter VC Date(s): 02/28/16 - 02/28/16 [facility] [address] [place] [phone] Discharge Diagnosis: Fracture of fifth metatarsal bone Discharge Disposition: 01-Home or Self Care Attending Physician: Mustapha Rubin APRN Admitting Physician: Mustapha Rubin APRN Vital Signs Most recent to oldest [Reference Range]: 1 Temperature Tympanic [36.6-38.1 degC] 37.0 degC (02/28/16 10:43 AM) Peripheral Pulse Rate [60-100 bpm] 70 bpm (02/28/16 10:43 AM) Respiratory Rate [14-20 br/min] 17 br/min (02/28/16 10:43 AM) Blood Pressure [90-140/60-90 mmHg] 140/80 mmHg (02/28/16 10:43 AM) SpO2 94 % (02/28/16 10:43 AM) Problem List Condition Effective Dates Status [...] BID, # 60 Each, 11 Refill(s), Pharmacy: [facility] # [id number] Start Date: 02/22/16 Status: OrderedAspirin Low Dose 81 mg, Oral, Daily, 0 Refill(s) Start Date: 04/23/14 Status: OrderedCalcium 600+D 1 tabs, Oral, Daily, 0 Refill(s) Start Date: 04/23/14 Status: OrderedFosamax 70 mg oral tablet 70 mg 1 tabs, Oral, qWeek, # 12 tabs, 3 Refill(s), Pharmacy: [facility] # [id number], 1 tabs Oral qWeek Start Date: 02/22/16 Status: Orderedhydrochlorothiazide 25 mg oral tablet See Instructions, TAKE ONE TABLET BY MOUTH EVERY DAY, # 100 tabs, eRx: [facility] #[id number], TAKE ONE TABLET BY MOUTH EVERY DAY Start Date: 09/23/15 Status: OrderedKlor-Con 10 oral tablet, extended release See Instructions, TAKE ONE TABLET BY MOUTH EVERY DAY, # 90 unknown unit, 1 Refill(s), eRx: [facility] #[id number], TAKE ONE TABLET BY MOUTH EVERY DAY Start Date: 03/12/15 Status: Orderedmultivitamin 1 tabs, Oral, Daily, 0 Refill(s) Start Date: 04/23/14 Status: OrderedNorvasc 5 mg oral tablet See Instructions, TAKE ONE TABLET BY MOUTH EVERY DAY, # 90 tabs, 10 Refill(s), eRx: [facility]#[id number], TAKE ONE TABLET BY MOUTH EVERY DAY [...] Date Refusal Reason influenza virus vaccine, inactivated 10/17/14 influenza virus vaccine, live 05/16/13 influenza virus [...] Extracted from: Title: Office Visit Note Author: Mustapha Rubin MUSIC VIDEO PRODUCER Date: 02/28/16 Assessment/Plan 1.Fracture of fifth metatarsal bone X-ray of foot and ankle are completed in office and was found that she does have a fracture of her fifth metatarsal. We will go ahead and get her cam walker b oot at this time and plan for her to be nonweightbearing for approximately one week. She will return in 1 week for follow-up appointment in x-ray at that time. Provided that things are going well I think that we can continue this but apparent on his healed completely. If things are going well and may need to consider peripheral sensory at this time.
--- OUTSIDE RECORDS SUMMARY | 2017-05-10 08:52 | External Medical Summary | Referral Summary ---
:1930 Author Organization [facility] Address [address] [place] [address] [place] [phone] Care Team Providers Name Role Phone Alan Butt V Primary Care Physician Encounter VC Date(s): 05/26/15 - 05/26/15 [facility] [address] [place] [phone] [place] Discharge Diagnosis: Cough Discharge Disposition: 01-Home or Self Care Attending Physician: Mustapha Rubin APRN Admitting Physician: Mustapha Rubin APRN Vital Signs Most recent to oldest [Reference Range]: 1 Temperature Tympanic [36.6-38.1 degC] 37.2 degC (05/26/15 9:42 AM) Peripheral Pulse Rate [60-100 bpm] 76 bpm (05/26/15 9:42 AM) Respiratory Rate [14-20 br/min] 17 br/min (05/26/15 9:42 AM) Blood Pressure [90-140/60-90 mmHg] 140/84 mmHg (05/26/15 9:42 AM) SpO2 97 % (05/26/15 9:42 AM) Problem List Condition Effective Dates Status [...] BID, # 60 Each, 11 Refill(s), Pharmacy: [facility] # [id number] Start Date: 05/26/15 Status: OrderedAspirin Low Dose 81 mg, Oral, Daily, 0 Refill(s) Start Date: 04/23/14 Status: OrderedCalcium 600+D 1 tabs, Oral, Daily, 0 Refill(s) Start Date: 04/23/14 Status: Orderedhydrochlorothiazide 25 mg oral tablet See Instructions, TAKE ONE TABLET BY MOUTH EVERY DAY, # 100 tabs, 1 Refill(s), eRx: [facility]#[id number], TAKE ONE TABLET BY MOUTH EVERY DAY Start Date: 09/17/14 Status: OrderedKlor-Con 10 oral tablet, extended release See Instructions, TAKE ONE TABLET BY MOUTH EVERY DAY, # 90 unknown unit, 1 Refill(s), eRx: [facility] #[id number], TAKE ONE TABLET BY MOUTH EVERY DAY Start Date: 03/12/15 Status: Orderedmultivitamin 1 tabs, Oral, Daily, 0 Refill(s) Start Date: 04/23/14 Status: OrderedNorvasc 5 mg oral tablet See Instructions, TAKE ONE TABLET BY MOUTH EVERY DAY, # 90 tabs, 11 Refill(s), eRx: [facility]#[id number], TAKE ONE TABLET BY MOUTH EVERY DAY Start Date: 09/16/14 Status: Orderedpravastatin 20 mg oral tablet See Instructions, TAKE ONE TABLET BY MOUTH EVERY DAY, # 90 tabs, 2 Refill(s), Pharmacy: [facility] #[id number], TAKE ONE TABLET BY MOUTH EVERY DAY Start Date: 05/20/14 Status: OrderedVitamin B-12 500 mcg, Oral, Daily, 0 Refill(s) Start Date: 04/23/14 Status: Ordered Results Hematology Most recent to oldest [Reference Range]: 1 WBC [5.0-10.0 10*3/uL] 12.2 10*3/uL *HI* (05/26/15 10:20 AM) RBC [3.70-5.20] 4.42 (05/26/15 10:20 AM) Hgb [12.0-16.0 gm/dL] 14.6 gm/dL (05/26/15 10:20 AM) Hct [37.0-47.0 %] 44.1 % (05/26/15 10:20 AM) MCV [80.0-96.0 fL] 99.8 fL *HI* (05/26/15 10:20 AM) MCH [26.0-34.0 pg] 33.0 pg (05/26/15 10:20 AM) MCHC [32.0-36.0 gm/dL] 33.1 gm/dL (05/26/15 10:20 AM) RDW [0.0-14.5 %] 13.2 % (05/26/15 10:20 AM) Platelet [150-400 10*3/uL] 331 10*3/uL (05/26/15 10:20 AM) MPV [8.8-14.8 fL] 9.3 fL (05/26/15 10:20 AM) Neutrophils [50-70 %] 62 % (05/26/15 10:20 AM) Lymphocytes [20-40 %] 24 % (05/26/15 10:20 AM) Monocytes [4-8 %] 12 % *HI* (05/26/15 10:20 AM) Eosinophils [0-6 %] 2 % (05/26/15 10:20 AM) Basophils [0-2 %] 0 % (05/26/15 10:20 AM) Neutro Absolute [2.50-7.00 10*3] 7.55 10*3 *HI* (05/26/15 10:20 AM) Lymph Absolute [1.00-4.00 10*3] 2.96 10*3 (05/26/15 10:20 AM) Gilmer Absolute [0.20-0.80 10*3] 1.45 10*3 *HI* (05/26/15 10:20 AM) Eos Absolute [0.00-0.60 10*3] 0.21 10*3 (05/26/15 10:20 AM) Baso Absolute [0.00-0.30] 0.05 (05/26/15 10:20 AM) Immunizations Vaccine Date Refusal Reason influenza virus [...]
--- OUTSIDE RECORDS SUMMARY | 2017-05-10 08:52 | External Medical Summary | Referral Summary ---
:1930 Author Organization [facility] [address] [place] [phone] Care Team Providers Name Role Phone Alan Butt V Primary Care Physician Encounter VC Date(s): 02/18/15 - 02/18/15 [facility] [address] [place] [phone] [place] Discharge Diagnosis: [...] BID, # 60 Each, 11 Refill(s), Pharmacy: [facility] # [id number] Start Date: 02/18/15 Status: OrderedAspirin Low Dose 81 mg, Oral, Daily, 0 Refill(s) Start Date: 04/23/14 Status: OrderedCalcium 600+D 1 tabs, Oral, Daily, 0 Refill(s) Start Date: 04/23/14 Status: Orderedhydrochlorothiazide 25 mg oral tablet See Instructions, TAKE ONE TABLET BY MOUTH EVERY DAY, # 100 tabs, 1 Refill(s), eRx: [facility]#[id number], TAKE ONE TABLET BY MOUTH EVERY DAY Start Date: 09/17/14 Status: OrderedKlor-Con 10 oral tablet, extended release See Instructions, TAKE ONE TABLET BY MOUTH EVERY DAY, # 90 unknown unit, 1 Refill(s), eRx: [facility] #[id number], TAKE ONE TABLET BY MOUTH EVERY DAY Start Date: 03/12/15 Status: Orderedmultivitamin 1 tabs, Oral, Daily, 0 Refill(s) Start Date: 04/23/14 Status: OrderedNorvasc 5 mg oral tablet See Instructions, TAKE ONE TABLET BY MOUTH EVERY DAY, # 90 tabs, 11 Refill(s), eRx: [facility]#[id number], TAKE ONE TABLET BY MOUTH EVERY DAY Start Date: 09/16/14 Status: Orderedpravastatin 20 mg oral tablet See Instructions, TAKE ONE TABLET BY MOUTH EVERY DAY, # 90 tabs, 2 Refill(s), Pharmacy: [facility] #[id number], TAKE ONE TABLET BY MOUTH EVERY DAY [...] # 60 Each, 11 Refill(s), Pharmacy: [facility] #[id number] Check labs as above. She will come in fasting another day for those to be drawn. Otherwise continue present care. Follow-up 6 months if all goes well.
[2017-05-10] MEDS ORDERED: CEFTRIAXONE (ER USE ONLY) 1 GM in NS 100 ML IV ONE (08:59)
--- OUTSIDE RECORDS SUMMARY | 2017-05-10 08:59 | External Medical Summary | Referral Summary ---
:1930 Author Organization [facility], [address] [place] [phone] Care Team Providers Name Role Phone Alan Butt V Primary Care Physician Encounter VC Date(s): 08/24/15 - 08/24/15 [facility] [address] [place] [phone]- Discharge Diagnosis: Dysuria Discharge Diagnosis: Mild persistent asthma Discharge Diagnosis: Elevated serum creatinine Discharge Diagnosis: Abnormal bone density screening Discharge Diagnosis: GERD (gastroesophageal reflux disease) Discharge Diagnosis: Benign essential hypertension Discharge Diagnosis: Foot callus Discharge Diagnosis: Mixed hyperlipidemia Discharge Disposition: 01-Home or Self Care Attending Physician: Alan Butt MD Admitting Physician: Alan Butt MD Vital Signs Most recent to oldest [Reference Range]: 1 Temperature Tympanic [36.6-38.1 degC] 36.7 degC (08/24/15 11:16 AM) Peripheral Pulse Rate [60-100 bpm] 70 bpm (08/24/15 11:16 AM) Blood Pressure [90-140/60-90 mmHg] 138/80 mmHg (08/24/15 11:16 AM) SpO2 94 % (08/24/15 11:16 AM) Problem List Condition Effective Dates Status [...] BID, # 60 Each, 11 Refill(s), Pharmacy: [facility] # [id number] Start Date: 05/26/15 Status: OrderedAspirin Low Dose 81 mg, Oral, Daily, 0 Refill(s) Start Date: 04/23/14 Status: OrderedCalcium 600+D 1 tabs, Oral, Daily, 0 Refill(s) Start Date: 04/23/14 Status: Orderedhydrochlorothiazide 25 mg oral tablet See Instructions, TAKE ONE TABLET BY MOUTH EVERY DAY, # 100 tabs, 1 Refill(s), eRx: [facility]#[id number], TAKE ONE TABLET BY MOUTH EVERY DAY Start Date: 09/17/14 Status: OrderedKlor-Con 10 oral tablet, extended release See Instructions, TAKE ONE TABLET BY MOUTH EVERY DAY, # 90 unknown unit, 1 Refill(s), eRx: [facility] #[id number], TAKE ONE TABLET BY MOUTH EVERY DAY Start Date: 03/12/15 Status: Orderedmultivitamin 1 tabs, Oral, Daily, 0 Refill(s) Start Date: 04/23/14 Status: OrderedNorvasc 5 mg oral tablet See Instructions, TAKE ONE TABLET BY MOUTH EVERY DAY, # 90 tabs, 11 Refill(s), eRx: [facility]#[id number], TAKE ONE TABLET BY MOUTH EVERY DAY Start Date: 09/16/14 Status: Orderedpravastatin 20 mg oral tablet See Instructions, TAKE ONE TABLET BY MOUTH EVERY DAY, # 90 tabs, 2 Refill(s), Pharmacy: [facility] #[id number], TAKE ONE TABLET BY MOUTH EVERY DAY Start Date: 05/20/14 Status: OrderedVitamin B-12 500 mcg, Oral, Daily, 0 Refill(s) Start Date: 04/23/14 Status: Ordered Results Urinalysis Most recent to oldest [Reference Range]: 1 UA Color Yellow (08/24/15 12:30 PM) UA Appear Clear (08/24/15 12:30 PM) UA pH [5.0-8.0] 6.0 (08/24/15 12:30 PM) UA Leuk Est [Negative] Pos 1+ *ABN* (08/24/15 12:30 PM) UA Nitrite [Negative] Negative (08/24/15 12:30 PM) UA Protein [Negative] Negative (08/24/15 12:30 PM) UA Glucose [Negative] Negative (08/24/15 12:30 PM) UA Ketones [Negative] Negative (08/24/15 12:30 PM) UA Urobilinogen [<1.0 mg/dL] 0.2 mg/dL (08/24/15 12:30 PM) UA Bili [Negative] Negative (08/24/15 12:30 PM) UA Blood [Negative] Negative (08/24/15 12:30 PM) UA Spec Grav [1.003-1.030] 1.022 (08/24/15 12:30 PM) Type Clean Catch (08/24/15 12:30 PM) UA WBC [0-4] 5-10 *ABN* (08/24/15 12:30 PM) UA RBC [0-4] 0-4 (08/24/15 12:30 PM) Epithelial Cells 2-5 (08/24/15 12:30 PM) UA Bacteria Rare (08/24/15 12:30 PM) Immunizations Vaccine Date Refusal Reason influenza virus vaccine, inactivated 04/24/14 influenza virus vaccine, live 05/16/13 influenza virus vaccine, live 03/29/12 pneumococcal 13-valent conjugate vaccine 11/12/14 pneumococcal 23-polyvalent vaccine 05/14/07 tetanus-diphth toxoids (Td) adult/adol 05/18/08 zoster vaccine live 11/12/14 Procedures Procedure Date Related Diagnosis Body Site Paring or cutting of benign hyperkeratotic 08/24/15 lesion (eg, corn or callus); single lesion Colonoscopy 05/28/08 Polypectomy 05/28/08 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 Colonoscopy 1998 Tonsillectomy 1939 Cataract extraction bilateral ORIF - Open reduction and internal fixation of fracture Lt leg Social History Social History Type Response Smoking Status Never smoker Assessment and Plan Extracted from: Title: CRMMP Author: Alan Butt MD Date: 08/24/15 Assessment/Plan Abnormal bone density screening Ordered: BD Bone Density DEXA Axial Skeleton Benign essential hypertension Dysuria Ordered: Urinalysis with Culture if Indicated Elevated serum creatinine Ordered: Basic Metabolic Panel Foot callus GERD (gastroesophageal reflux disease) Mild persistent asthma Mixed hyperlipidemia Orders: BD Bone Density DEXA Axial Skeleton We'll check screening bone density study. Her recently elevated creatinine was noted and will plan a repeat BMP in one week to follow-up on this. Urinalysis obtained due to urine frequency. The foot callus was trimmed using a scalpel blade which did take some pressure off of the involved area. I suggested keeping up pad between the toes. Otherwise continue current medications and follow-up in 6 months or sooner if needed.
--- OUTSIDE RECORDS SUMMARY | 2017-05-10 08:59 | External Medical Summary | Referral Summary ---
:1930 Author Organization [facility] Address [address] [place] [address] [place] [phone] Care Team Providers Name Role Phone Alan Butt Zara Primary Care Physician Encounter VC Date(s): 03/21/16 - 03/21/16 [facility] [address] [place] [phone] [place] Discharge Diagnosis: Fracture of 5th metatarsal Discharge Disposition: 01-Home or Self Care Attending Physician: Mustapha Rubin APRN Admitting Physician: Mustapha Rubin APRN Vital Signs Most recent to oldest [Reference Range]: 1 Temperature Tympanic [36.6-38.1 degC] 36.6 degC (03/21/16 8:34 AM) Peripheral Pulse Rate [60-100 bpm] 75 bpm (03/21/16 8:34 AM) Respiratory Rate [14-20 br/min] 16 br/min (03/21/16 8:34 AM) Blood Pressure [90-140/60-90 mmHg] 115/78 mmHg (03/21/16 8:34 AM) SpO2 95 % (03/21/16 8:34 AM) Problem List Condition Effective Dates Status [...] BID, # 60 Each, 11 Refill(s), Pharmacy: [facility] # [id number] Start Date: 02/22/16 Status: OrderedAspirin Low Dose 81 mg, Oral, Daily, 0 Refill(s) Start Date: 04/23/14 Status: OrderedCalcium 600+D 1 tabs, Oral, Daily, 0 Refill(s) Start Date: 04/23/14 Status: OrderedFosamax 70 mg oral tablet 70 mg 1 tabs, Oral, qWeek, # 12 tabs, 3 Refill(s), Pharmacy: [facility] # [id number], 1 tabs Oral qWeek Start Date: 02/22/16 Status: Orderedhydrochlorothiazide 25 mg oral tablet See Instructions, TAKE ONE TABLET BY MOUTH EVERY DAY, # 100 tabs, eRx: [facility] #[id number], TAKE ONE TABLET BY MOUTH EVERY DAY Start Date: 09/23/15 Status: OrderedKlor-Con 10 oral tablet, extended release See Instructions, TAKE ONE TABLET BY MOUTH EVERY DAY, # 90 unknown unit, 1 Refill(s), eRx: [facility] #[id number], TAKE ONE TABLET BY MOUTH EVERY DAY Start Date: 03/12/15 Status: Orderedmultivitamin 1 tabs, Oral, Daily, 0 Refill(s) Start Date: 04/23/14 Status: OrderedNorvasc 5 mg oral tablet See Instructions, TAKE ONE TABLET BY MOUTH EVERY DAY, # 90 tabs, 10 Refill(s), eRx: [facility]#[id number], TAKE ONE TABLET BY MOUTH EVERY DAY [...]
--- OUTSIDE RECORDS SUMMARY | 2017-05-10 08:59 | External Medical Summary | Referral Summary ---
:1930 Author Organization [facility], [address] [place] [phone] Care Team Providers Name Role Phone Alan Butt V Primary Care Physician Encounter VC Date(s): 02/18/15 - 02/18/15 [facility] [address] [place] [phone] [place] Discharge Diagnosis: [...] BID, # 60 Each, 11 Refill(s), Pharmacy: [facility] # [id number] Start Date: 05/26/15 Status: OrderedAspirin Low Dose 81 mg, Oral, Daily, 0 Refill(s) Start Date: 04/23/14 Status: OrderedCalcium 600+D 1 tabs, Oral, Daily, 0 Refill(s) Start Date: 04/23/14 Status: Orderedcephalexin 250 mg oral tablet 250 mg 1 tabs, Oral, QID, X 10 days, # 40 tabs, 0 Refill(s), Pharmacy: [facility] #[id number], 1 tabs Oral QID,x10 days Start Date: 08/25/15 Stop Date: 09/04/15 Status: Orderedhydrochlorothiazide 25 mg oral tablet See Instructions, TAKE ONE TABLET BY MOUTH EVERY DAY, # 100 tabs, 1 Refill(s), eRx: [facility]#[id number], TAKE ONE TABLET BY MOUTH EVERY DAY Start Date: 09/17/14 Status: OrderedKlor-Con 10 oral tablet, extended release See Instructions, TAKE ONE TABLET BY MOUTH EVERY DAY, # 90 unknown unit, 1 Refill(s), eRx: [facility] #[id number], TAKE ONE TABLET BY MOUTH EVERY DAY Start Date: 03/12/15 Status: Orderedmultivitamin 1 tabs, Oral, Daily, 0 Refill(s) Start Date: 04/23/14 Status: OrderedNorvasc 5 mg oral tablet See Instructions, TAKE ONE TABLET BY MOUTH EVERY DAY, # 90 tabs, 11 Refill(s), eRx: [facility]#[id number], TAKE ONE TABLET BY MOUTH EVERY DAY Start Date: 09/16/14 Status: Orderedpravastatin 20 mg oral tablet See Instructions, TAKE ONE TABLET BY MOUTH EVERY DAY, # 90 tabs, 2 Refill(s), Pharmacy: [facility] #[id number], TAKE ONE TABLET BY MOUTH EVERY DAY [...] BID, # 60 Each, 11 Refill(s), Pharmacy: [facility] #[id number] Check labs as above. She will come in fasting another day for those to be drawn. Otherwise continue present care. Follow-up 6 months if all goes well.
--- OUTSIDE RECORDS SUMMARY | 2017-05-10 09:01 | External Medical Summary | Referral Summary ---
:1930 Author Organization [facility] [address] [place] [phone] Care Team Providers Name Role Phone Alan Butt V Primary Care Physician Encounter VC Date(s): 02/18/15 - 02/18/15 [facility] [address] [place] [phone] [place] Discharge Diagnosis: [...] BID, # 60 Each, 11 Refill(s), Pharmacy: [facility] # [id number] Start Date: 02/18/15 Status: OrderedAspirin Low Dose 81 mg, Oral, Daily, 0 Refill(s) Start Date: 04/23/14 Status: OrderedCalcium 600+D 1 tabs, Oral, Daily, 0 Refill(s) Start Date: 04/23/14 Status: Orderedhydrochlorothiazide 25 mg oral tablet See Instructions, TAKE ONE TABLET BY MOUTH EVERY DAY, # 100 tabs, 1 Refill(s), eRx: [facility]#[id number], TAKE ONE TABLET BY MOUTH EVERY DAY Start Date: 09/17/14 Status: OrderedKlor-Con 10 oral tablet, extended release See Instructions, TAKE ONE TABLET BY MOUTH EVERY DAY, # 90 unknown unit, 1 Refill(s), eRx: [facility] #[id number], TAKE ONE TABLET BY MOUTH EVERY DAY Start Date: 03/12/15 Status: Orderedmultivitamin 1 tabs, Oral, Daily, 0 Refill(s) Start Date: 04/23/14 Status: OrderedNorvasc 5 mg oral tablet See Instructions, TAKE ONE TABLET BY MOUTH EVERY DAY, # 90 tabs, 11 Refill(s), eRx: [facility]#[id number], TAKE ONE TABLET BY MOUTH EVERY DAY Start Date: 09/16/14 Status: Orderedpravastatin 20 mg oral tablet See Instructions, TAKE ONE TABLET BY MOUTH EVERY DAY, # 90 tabs, 2 Refill(s), Pharmacy: [facility] #[id number], TAKE ONE TABLET BY MOUTH EVERY DAY [...] BID, # 60 Each, 11 Refill(s), Pharmacy: [facility] #[id number] Check labs as above. She will come in fasting another day for those to be drawn. Otherwise continue present care. Follow-up 6 months if all goes well.
--- NOTE | 2017-05-10 09:15 | XRay Report ---
INDICATION: dyspnea PROCEDURE: CHEST 2-VIEWS UPRIGHT (PA & LAT) Encounter: Initial COMPARISON: September 06, 2016 FINDINGS: Peripheral subpleural fibrosis, hyperinflation and COPD is redemonstrated. No definite areas of new or worsening airspace disease. There is no pleural effusion or pneumothorax. The heart size, mediastinal contours and pulmonary vascularity are stable. IMPRESSION: Stable chest with findings of COPD and pulmonary fibrosis. .
[2017-05-10] MEDS ORDERED: NS 1,000 ML IV SCH ×2 (09:45→11:07)
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
[2017-05-10 11:09] VITALS: BMI 33.5
--- NOTE | 2017-05-10 11:43 | History & Physical Report ---
<Gudelia Boyer - Last Filed: 05/10/17 17:32> History of Present Illness Date: 05/10/17 Chief complaint: shortness of breath and cough HPI: Patient is an 87-year-old female who presents to the emergency room this morning with shortness of breath and cough. States for the last month she's had increased sputum and cough but yesterday symptoms worsen significantly with shortness of breath. On presentation to the emergency room her O2 saturations were 88%. She does not use home oxygen. Patient reports she gets pneumonia twice a year and has underlying COPD. She had a 99.8 temperature on admission. She's had increased weakness. She does live at home alone independently. Her daughter lives close and checks on her daily. Workup in the emergency room included CBC showing a white count of 29.2 with elevated bands and neutrophils. BNP elevated at 540. Chest x-ray shows no acute findings. Lactate was normal. Review of Systems All systems PM: 10-point ROS was reviewed, no additional remarkable complaints except - Constitutional Constitutional: Present: weakness - Cardiovascular Cardiovascular: Present: dyspnea on exertion - Respiratory Respiratory: Present: cough, dyspnea, excessive phlegm production - Musculoskeletal Musculoskeletal: Present: other (left-sided rib pain with cough) PFSH Medical History COPD Hypertension Hypercholesterolemia GERD Diverticulosis Surgical History: Polypectomy 05/28/08 (hyperplastic polyp). Colonoscopy 2007. Bilateral ptosis surgery 02/09. Bilateral cataract extraction. Tonsillectomy 1938. ORIF left lower leg fracture Family History: Strong family history of heart disease Father at age 69 of heart disease Mother had dementia, kidney disease, and breast cancer Son at age 60 of metastasis from bladder cancer No family history of coagulopathies - Social History Smoking status: Never smoker Substance use type: does not use Alcohol intake frequency: does not drink Housing: house Household members: none Current occupational status: retired Social history: PCP-Dr. Alan Butt Medications Home Medications Medication Instructions Recorded Confirmed Type Amlodipine Besylate 5 mg PO DAILY #0 10/13/09 05/10/17 History Potassium Chloride [Klor-Con 10] 10 meq PO DAILY #0 10/13/09 05/10/17 History Pravastatin Sodium 40 mg PO HS #0 10/13/09 05/10/17 History hydroCHLOROthiazide 25 mg PO DAILY #0 10/13/09 05/10/17 History [Hydrochlorothiazide] Fluticasone/Salmeterol [Advair 1 puff ORAL INH RTBID #0 inhaler 09/05/16 History 500-50 Diskus] Acetaminophen [Acetaminophen Extra 1,000 mg PO Q6H PRN 05/10/17 05/10/17 History Strength] Aspirin Chewable [ASA] 81 mg PO HS 05/10/17 05/10/17 History Cholecalciferol (Vitamin D3) 1,000 unit PO DAILY 05/10/17 05/10/17 History [Vitamin D3] Cyanocobalamin (Vitamin B-12) 1,000 unit PO DAILY 05/10/17 05/10/17 History [Vitamin B-12] Folic Acid/Mv,Iron,Min [One Daily 1 tab PO DAILY 05/10/17 05/10/17 History For Women Tablet] Allergies Allergy/AdvReac Type Severity Reaction Status Date / Time No Known Drug Allergies Allergy Unknown Verified 05/10/17 08:26 Exam Vital Signs: Temperature 98.2 F 05/10/17 11:22 Pulse Rate 93 05/10/17 11:22 Respiratory Rate 32 H 05/10/17 11:22 Blood Pressure 156/73 H 05/10/17 11:22 Pulse Oximetry 92 05/10/17 11:22 Height/Weight/BMI: Height 1.57 m Weight 83.2 kg Body Mass Index 33.5 - Constitutional Present: no acute distress, well nourished, well developed - Routine HEENT Exam Head: Present: normocephalic, atraumatic Eye: Present: EOMI. Absent: conjunctival icterus ENT: Present: mucous membranes moist, oropharynx clear - Routine Neck Exam Present: supple. Absent: lymphadenopathy - Routine Respiratory Exam Present: dyspnea, diminished air movement. Absent: wheezes Comments: On initial exam patient has diffuse coarse sounds, after cough, sounds are mostly clear, but decreased. - Routine Cardiovascular Exam Present: RRR, S1, S2. Absent: murmur - Routine Abdominal Exam Present: soft, normoactive bowel sounds, non distended. Absent: tenderness - Routine Extremities Exam Present: edema (trace bilateral), normal capillary refill - Routine Skin Exam Present: dry, warm - Routine Neurological Exam Present: alert, oriented X3, CN II-XII intact - Routine Psychiatric Exam Present: normal affect, cooperative Results - Labs CBC & Chem 7: 05/10/17 08:31 05/10/17 08:31 Assessment and Plan (1) Respiratory distress Current visit: Yes Status: Acute (2) Hypoxia Current visit: Yes Status: Acute (3) Essential hypertension, benign Current visit: Yes Status: Acute (4) COPD exacerbation Current visit: Yes Status: Acute (5) Severe sepsis Current visit: Yes Status: Acute Assessment and Plan: Assessment Severe sepsis given suspected pulmonary source of infection, SIRS criteria of leukocytosis and tachypnea, and organ dysfunction evidenced by elevated lactate and elevated bilirubin. Possible CAP Hypoxia - R/o infection vs COPD exacerbation vs CHF/fluid overload. Respiratory distress COPD exacerbation Hypertension Hyperlipidemia GERD Diverticulosis Plan Admit patient to inpatient status under the hospitalist service due to severe sepsis and hypoxia. Dr. Lam attending. DuoNeb and budesonide treatments, incentive spirometry, Acapella for pulmonary hygiene Respiratory panel and influenza testing. Repeat lactate ordered per sepsis protocol. IVF's for gentle hydration. Hold after 1 L if taking po well. Rocephin and Zithromax for empiric CAP coverage. Solumedrol for COPD exacerbation. Protonix for GI prophylaxis. SCD's for DVT prophylaxis. Discussed code status with patient and her daughter. She reports there is a "DNR" on file here, but when specifically asked if she wants resuscitation in the hospital she cannot definitely answer, therefore, full code is ordered. Her daughter and son are her DPOA-H. D-Dimer was only slightly elevated. Will see how she responds to treatment before proceeding with further imaging. Case discussed with Dr. Lam, nursing staff and patient's daughter. Dr Lam to determine further plan of care. On dismissal, care to return to Dr. Alan Butt. DVT Prophylaxis: SCD's GI Prophylaxis: Protonix Resuscitation Status: Full Code Sepsis Assessment - Evaluation Possible source: pulmonary Confirmed Suspected Infection: No SIRS Criteria: WBC > or equal to 12,000, RR > or equal to 20 Severe Sepsis: bilirubin > 2 mg/dL - Focused Exam Date exam was performed: 05/10/17 Hospital Course Summary Disclaimer: The visit summary below is not to be considered part of the above Progress Note. Hospital Course: Assessment Severe sepsis given suspected pulmonary source of infection, SIRS criteria of leukocytosis and tachypnea, and organ dysfunction evidenced by elevated lactate and elevated bilirubin. Possible CAP Hypoxia - R/o infection vs COPD exacerbation vs CHF/fluid overload. Respiratory distress COPD exacerbation Hypertension Hyperlipidemia GERD Diverticulosis Plan Admit patient to inpatient status under the hospitalist service due to severe sepsis and hypoxia. Dr. Lam attending. DuoNeb and budesonide treatments, incentive spirometry, Acapella for pulmonary hygiene Respiratory panel and influenza testing. Repeat lactate ordered per sepsis protocol. IVF's for gentle hydration. Hold after 1 L if taking po well. Rocephin and Zithromax for empiric CAP coverage. Solumedrol for COPD exacerbation. Protonix for GI prophylaxis. SCD's for DVT prophylaxis. Discussed code status with patient and her daughter. She reports there is a "DNR" on file here, but when specifically asked if she wants resuscitation in the hospital she cannot definitely answer, therefore, full code is ordered. Her daughter and son are her DPOA-H. D-Dimer was only slightly elevated. Will see how she responds to treatment before proceeding with further imaging. Case discussed with Dr. Lam, nursing staff and patient's daughter. Dr Lam to determine further plan of care. On dismissal, care to return to Dr. Alan Butt. <Anatoliy Lam - Last Filed: 05/10/17 22:05> History of Present Illness Date: 05/10/17 [facility] Patient Stated Medical History Cataracts Yes: removed Hearing Loss Yes: [place] Hypertension Yes Chronic Obstructive Pulmonary Yes Disease (COPD) Pneumonia Yes Hx Incontinence Yes Other Musculoskeletal Yes: fx knee Sepsis Yes Post Menopausal Yes Clinic Medical History Pneumonia (Acute Medical) Hyperemia (Acute Medical) Hypoxia (Acute Medical) Essential hypertension, benign (Acute Medical) Respiratory distress (Acute Medical) COPD exacerbation (Acute Medical) Severe sepsis (Acute Medical) Exam Vital Signs: Temperature 98.4 F 05/10/17 20:00 Pulse Rate 90 05/10/17 20:00 Respiratory Rate 20 05/10/17 20:50 Blood Pressure 135/67 05/10/17 20:00 Pulse Oximetry 95 05/10/17 20:50 Height/Weight/BMI: Height 5 ft 2 in Weight 83.2 kg Body Mass Index 33.5 Results - Labs CBC & Chem 7: 05/10/17 08:31 05/10/17 08:31 Assessment and Plan (1) Hypoxia Current visit: Yes Status: Acute (2) Essential hypertension, benign Current visit: Yes Status: Acute (3) Respiratory distress Current visit: Yes Status: Acute (4) COPD exacerbation Current visit: Yes Status: Acute (5) Severe sepsis Current visit: Yes Status: Acute Assessment and Plan: Seen and examined patient on same day as the above note. Agree with history, physical, assessment and plan. Comprehensive physical findings correlate to the above note. Documented on Dragon speech to text. Efforts to correct speech recognition errors performed, but variation may exist Hospital Course Summary Disclaimer: The visit summary below is not to be considered part of the above Progress Note.
[2017-05-10] MEDS: ALBUTEROL/IPRATROPIUM 2.5mg-0.5mg/3ml NEB AEROSOL SCH ×3 (12:16→20:50)
[2017-05-10] MEDS ORDERED: ACETAMINOPHEN 500 MG TABLET PO PRN (13:34)
[2017-05-10] MEDS: PANTOPRAZOLE 40 MG INJECTION IVP SCH (14:31)
[2017-05-10] MEDS: AZITHROMYCIN IV 500 MG in NS 250ml 250 ML IV SCH (14:31)
[2017-05-10] MEDS: METHYLPREDNISOLONE SOD SUCC 40mg/ml INJECTION IVP SCH ×2 (14:32→20:09)
[2017-05-10] MEDS: PRAVASTATIN 40 MG TABLET PO SCH (20:09)
[2017-05-10] MEDS: ASPIRIN 81 MG CHEWABLE TABLET PO SCH (20:09)
[2017-05-10] MEDS: BUDESONIDE INH.SOLN 0.5mg/2ml NEB AEROSOL SCH (20:50)
[2017-05-11] MEDS: METHYLPREDNISOLONE SOD SUCC 40mg/ml INJECTION IVP SCH ×4 (03:11→20:02)
[2017-05-11] MEDS: SALINE FLUSH 10ml SYRINGE IVF PRN ×4 (03:11→20:03)
--- NOTE | 2017-05-11 07:20 | Echocardiogram ---
DATE OF PROCEDURE May 10, 2017 REFERRING PHYSICIAN Anatoliy Lam MD This is a two-dimensional echo with spectral Doppler, color-flow and M-mode. It was obtained in a patient with shortness of breath and hypoxia. Left atrial dimension is normal. Left ventricle end-diastolic dimension is normal. Left ventricle wall thickness is normal. LV systolic function is normal with ejection fraction of 70%. Right atrium is normal. Right ventricle is normal. Aortic root dimension is normal. Mitral annulus is calcified. Mitral valve leaflets are normal with trace of mitral regurgitation. Aortic valve shows fibrocalcific changes with no stenosis or insufficiency. Tricuspid valve shows mild tricuspid regurgitation with mild pulmonary hypertension with estimated pulmonary artery systolic pressure of 42. Pulmonary valve shows trace of pulmonary insufficiency. There is no pericardial effusion. IMPRESSION 1. Normal LV systolic function with ejection fraction of 70%. 2. Mitral annulus calcification with trace of mitral regurgitation. 3. Aortic sclerosis. 4. Mild tricuspid regurgitation with mild pulmonary hypertension with estimated pulmonary artery systolic pressure of 42. 5. Trace of pulmonary insufficiency. MTDD
[2017-05-11] MEDS: AMLODIPINE 5 MG TABLET PO SCH (08:11)
[2017-05-11] MEDS: PANTOPRAZOLE 40 MG INJECTION IVP SCH (08:12)
[2017-05-11] MEDS: CEFTRIAXONE 1 G in NS 100 ML IV SCH (08:13)
[2017-05-11] MEDS: BUDESONIDE INH.SOLN 0.5mg/2ml NEB AEROSOL SCH ×2 (08:17→20:14)
[2017-05-11] MEDS: ALBUTEROL/IPRATROPIUM 2.5mg-0.5mg/3ml NEB AEROSOL SCH ×4 (08:17→20:14)
[2017-05-11] MEDS: AZITHROMYCIN IV 500 MG in NS 250ml 250 ML IV SCH (13:45)
[2017-05-11] MEDS ORDERED: INFLUENZA VAC High Dose 2017-18 (Fluzone HD*) (>=65yo) 0.5ml IM ONE (15:00)
[2017-05-11] MEDS ORDERED: INFLUENZA VAC. INJ. ADMIN CHARGE INJ ONE (16:00)
[2017-05-11] MEDS: ASPIRIN 81 MG CHEWABLE TABLET PO SCH (20:00)
[2017-05-11] MEDS: PRAVASTATIN 40 MG TABLET PO SCH (20:00)
--- NOTE | 2017-05-11 21:11 | Progress Note ---
- Date 05/11/17 Subjective: She states she is feeling a little bit better with symptoms but still having significant difficulty breathing. Does not tolerate room air very well today ( she is baseline supplemental oxygen independent) Objective Vital signs: Temperature 97.6 F 05/11/17 15:22 Pulse Rate 87 05/11/17 15:22 Respiratory Rate 20 05/11/17 20:14 Blood Pressure 143/66 H 05/11/17 15:22 Pulse Oximetry 98 05/11/17 20:14 Height/Weight/BMI: Height 5 ft 2 in Weight 85.1 kg Body Mass Index 33.5 - Constitutional Present: mild distress, well nourished, well developed - Routine HEENT Exam Eye: Present: EOMI ENT: Present: mucous membranes moist, dentition normal - Routine Respiratory Exam Present: respiratory distress, wheezes, diminished air movement - Routine Cardiovascular Exam Present: RRR. Absent: murmur - Routine Abdominal Exam Present: soft, normoactive bowel sounds, non distended. Absent: tenderness - Routine Extremities Exam Present: normal capillary refill - Routine Skin Exam Present: dry, warm - Routine Neurological Exam Present: alert, oriented X3, CN II-XII intact - Routine Lymphatic Exam Lymphatic: Absent: adenopathy - Routine Psychiatric Exam Present: normal affect, cooperative, good insight Results - Labs CBC & Chem 7: 05/11/17 04:20 05/11/17 04:20 Assessment and Plan (1) Hypoxia Current visit: Yes Status: Acute (2) Essential hypertension, benign Current visit: Yes Status: Acute (3) Respiratory distress Current visit: Yes Status: Acute (4) COPD exacerbation Current visit: Yes Status: Acute (5) Severe sepsis Current visit: Yes Status: Acute Assessment and Plan: Assessment SIRS: SIRS criteria of leukocytosis and tachypnea, and organ dysfunction evidenced by elevated lactate and elevated bilirubin. Possible CAP Hypoxia - R/o infection vs COPD exacerbation vs CHF/fluid overload. Respiratory distress COPD exacerbation Hypertension Hyperlipidemia GERD Diverticulosis This appears to be a severe bronchitis with none of the respiratory panel returning positive for a viral diagnosis. Pulmonary function continues to remain impaired. Will repeat a chest x-ray in the morning to get closer 48 hours into treatment. Did not need a full course fluid resuscitation for severe sepsis nor when I treat this any more aggressively than community acquired pneumonia at this stage. She does have a slightly elevated be natriuretic peptide and so a in echocardiogram has been ordered more to determine if there is pulmonary hypertension than a diminished ejection fraction. That would be unexpected. Continue pulmonary treatment and antibiotics, steroids and supplemental oxygen. Anticipate another 2 days for improvement if the course remains routine treatment of an acute bronchitis. Hospital Course Summary Disclaimer: The visit summary below is not to be considered part of the above Progress Note. Hospital Course: Assessment Severe sepsis given suspected pulmonary source of infection, SIRS criteria of leukocytosis and tachypnea, and organ dysfunction evidenced by elevated lactate and elevated bilirubin. Possible CAP Hypoxia - R/o infection vs COPD exacerbation vs CHF/fluid overload. Respiratory distress COPD exacerbation Hypertension Hyperlipidemia GERD Diverticulosis Plan Admit patient to inpatient status under the hospitalist service due to severe sepsis and hypoxia. Dr. Lam attending. DuoNeb and budesonide treatments, incentive spirometry, Acapella for pulmonary hygiene Respiratory panel and influenza testing. Repeat lactate ordered per sepsis protocol. IVF's for gentle hydration. Hold after 1 L if taking po well. Rocephin and Zithromax for empiric CAP coverage. Solumedrol for COPD exacerbation. Protonix for GI prophylaxis. SCD's for DVT prophylaxis. Discussed code status with patient and her daughter. She reports there is a "DNR" on file here, but when specifically asked if she wants resuscitation in the hospital she cannot definitely answer, therefore, full code is ordered. Her daughter and son are her DPOA-H. D-Dimer was only slightly elevated. Will see how she responds to treatment before proceeding with further imaging. Case discussed with Dr. Lam, nursing staff and patient's daughter. Dr Lam to determine further plan of care. On dismissal, care to return to Dr. Alan Butt.
[2017-05-12] MEDS: METHYLPREDNISOLONE SOD SUCC 40mg/ml INJECTION IVP SCH ×2 (04:33→08:32)
[2017-05-12] MEDS: SALINE FLUSH 10ml SYRINGE IVF PRN ×3 (04:34→12:48)
[2017-05-12] MEDS: ALBUTEROL/IPRATROPIUM 2.5mg-0.5mg/3ml NEB AEROSOL SCH ×4 (07:14→19:51)
[2017-05-12] MEDS: BUDESONIDE INH.SOLN 0.5mg/2ml NEB AEROSOL SCH ×2 (07:14→19:51)
[2017-05-12] MEDS: AMLODIPINE 5 MG TABLET PO SCH (08:32)
[2017-05-12] MEDS: PANTOPRAZOLE 40 MG INJECTION IVP SCH (08:32)
[2017-05-12] MEDS: CEFTRIAXONE 1 G in NS 100 ML IV SCH (08:33)
[2017-05-12] MEDS ORDERED: NS FLUSH BAG 500ml IV PRN (09:49)
[2017-05-12] MEDS ORDERED: PredniSONE 10 MG TABLET PO SCH (09:52)
[2017-05-12] MEDS: AZITHROMYCIN IV 500 MG in NS 250ml 250 ML IV SCH (12:48)
[2017-05-12] MEDS ORDERED: NS 1,000 ML IV SCH (13:30)
--- NOTE | 2017-05-12 14:43 | Progress Note ---
- Date 05/12/17 Subjective: Patient is an 87-year-old female who presents to the emergency room on 2016 with shortness of breath and cough. States for the last month she's had increased sputum and cough but 05/09/2017 symptoms worsen significantly with shortness of breath. On presentation to the emergency room her O2 saturations were 88%. She does not use home oxygen. Patient reports she gets pneumonia twice a year and has underlying COPD. She had a 99.8 temperature on admission. She's had increased weakness. She does live at home alone independently. Her daughter lives close and checks on her daily. Workup in the emergency room included CBC showing a white count of 29.2 with elevated bands and neutrophils. BNP elevated at 540. Chest x-ray shows no acute findings. Lactate was normal. Today, she is up to chair eating lunch. She is on RA. She is winding with normal conversation. She continues to have a productive cough. Her resp therapy is helping. She denies CP, palp, abd pain, N/V. Bowels are working. She is eating well. She is afebrile. She reports she is feeling better. Objective Vital signs: Temperature 96.1 F L 05/12/17 07:53 Pulse Rate 74 05/12/17 08:00 Respiratory Rate 24 05/12/17 11:31 Blood Pressure 150/69 H 05/12/17 07:53 Pulse Oximetry 95 05/12/17 11:31 Height/Weight/BMI: Height 1.57 m Weight 85.4 kg Body Mass Index 33.5 Comments: Gen: alert and oriented. NAD Skin: warm and dry HEENT: NC/AT PERRL, EOMI, Sclera, lids and conjunctiva wnl. MMM. OP clear. Neck: No JVD, Carotids 2+ without bruits Lungs: Coarse BS, soft exp wheeze, No rales. CV: regular. 2/6 murmur RSB no radiation to carotids. Abd: soft. +BS. NT/ND MS: No edema. Good strength and ROM Neuro: No focal deficits Results - Labs CBC & Chem 7: 05/12/17 09:31 05/11/17 04:20 Assessment and Plan (1) Hypoxia Current visit: Yes Status: Acute (2) Essential hypertension, benign Current visit: Yes Status: Acute (3) Respiratory distress Current visit: Yes Status: Acute (4) COPD exacerbation Current visit: Yes Status: Acute (5) Severe sepsis Current visit: Yes Status: Acute Assessment and Plan: Assessment 1. SIRS: SIRS criteria of leukocytosis and tachypnea, and organ dysfunction evidenced by elevated lactate and elevated bilirubin. -Probable CAP -Repeat labs in am 2. Hypoxia - improving, now on RA 3. Respiratory distress -COPD exacerbation -Probably PNA -On solumedrol, azithromycin, Rocephin and resp therapy -Repeat CXR in am -Resp panel neg -Check sputum culture. 4. Hypertension -On Norvasc 5mg daily 5. Hyperlipidemia -Pravachol 6. GERD -PPI 7. Prophylaxis -PPI, lovenox Hospital Course Summary Disclaimer: The visit summary below is not to be considered part of the above Progress Note. Hospital Course: Assessment Severe sepsis given suspected pulmonary source of infection, SIRS criteria of leukocytosis and tachypnea, and organ dysfunction evidenced by elevated lactate and elevated bilirubin. Possible CAP Hypoxia - R/o infection vs COPD exacerbation vs CHF/fluid overload. Respiratory distress COPD exacerbation Hypertension Hyperlipidemia GERD Diverticulosis Plan Admit patient to inpatient status under the hospitalist service due to severe sepsis and hypoxia. Dr. Lam attending. DuoNeb and budesonide treatments, incentive spirometry, Acapella for pulmonary hygiene Respiratory panel and influenza testing. Repeat lactate ordered per sepsis protocol. IVF's for gentle hydration. Hold after 1 L if taking po well. Rocephin and Zithromax for empiric CAP coverage. Solumedrol for COPD exacerbation. Protonix for GI prophylaxis. SCD's for DVT prophylaxis. Discussed code status with patient and her daughter. She reports there is a "DNR" on file here, but when specifically asked if she wants resuscitation in the hospital she cannot definitely answer, therefore, full code is ordered. Her daughter and son are her DPOA-H. D-Dimer was only slightly elevated. Will see how she responds to treatment before proceeding with further imaging. Case discussed with Dr. Lam, nursing staff and patient's daughter. Dr Lam to determine further plan of care. On dismissal, care to return to Dr. Alan Butt.
[2017-05-12] MEDS: ENOXAPARIN 40 MG/0.4 ML INJECTION SQ SCH (15:23)
[2017-05-12] MEDS: ASPIRIN 81 MG CHEWABLE TABLET PO SCH (20:17)
[2017-05-12] MEDS: PRAVASTATIN 40 MG TABLET PO SCH (20:17)
[2017-05-13] MEDS ORDERED: GUAIFENESIN/CODEINE 5ml ORAL LIQUID PO PRN (00:59)
[2017-05-13] MEDS: ALBUTEROL/IPRATROPIUM 2.5mg-0.5mg/3ml NEB AEROSOL PRN ×2 (01:04→23:25)
[2017-05-13] MEDS: BUDESONIDE INH.SOLN 0.5mg/2ml NEB AEROSOL SCH ×2 (07:38→20:01)
[2017-05-13] MEDS: ALBUTEROL/IPRATROPIUM 2.5mg-0.5mg/3ml NEB AEROSOL SCH ×4 (07:38→20:01)
[2017-05-13] MEDS: AMLODIPINE 5 MG TABLET PO SCH (08:59)
[2017-05-13] MEDS: PANTOPRAZOLE 40 MG INJECTION IVP SCH (08:59)
[2017-05-13] MEDS: SALINE FLUSH 10ml SYRINGE IVF PRN ×2 (09:00→21:03)
[2017-05-13] MEDS: CEFTRIAXONE 1 G in NS 100 ML IV SCH (09:00)
--- NOTE | 2017-05-13 09:53 | XRay Report ---
INDICATION: hypoxia PROCEDURE: CHEST 2-VIEWS UPRIGHT (PA & LAT) Encounter: Initial COMPARISON: May 10, 2017 FINDINGS: Lungs again show fibrotic changes and hyperinflation. Basilar areas of scarring. New mild airspace opacity in the left lower lobe with a somewhat linear appearance. No pneumothorax. Heart size and mediastinal contours are stable. Pulmonary vascularity is more congested. Impression: Mild pulmonary vascular congestion with left lower lobe probable platelike atelectasis. .
[2017-05-13] MEDS: ENOXAPARIN 40 MG/0.4 ML INJECTION SQ SCH (12:02)
[2017-05-13] MEDS: AZITHROMYCIN IV 500 MG in NS 250ml 250 ML IV SCH (13:39)
--- NOTE | 2017-05-13 14:30 | Progress Note ---
- Date 05/13/17 Subjective: Patient is an 87-year-old female who presents to the emergency room on 2016 with shortness of breath and cough. States for the last month she's had increased sputum and cough but 05/09/2017 symptoms worsen significantly with shortness of breath. On presentation to the emergency room her O2 saturations were 88%. She does not use home oxygen. Patient reports she gets pneumonia twice a year and has underlying COPD. She had a 99.8 temperature on admission. She's had increased weakness. She does live at home alone independently. Her daughter lives close and checks on her daily. Workup in the emergency room included CBC showing a white count of 29.2 with elevated bands and neutrophils. BNP elevated at 540. Chest x-ray shows no acute findings. Lactate was normal. Today, She continues on RA. Her voice is still raspy. She is still winded miguel with walking but she did walk on RA today. She continues to have a productive cough. Her resp therapy is helping. She denies CP, palp, abd pain, N/V. Bowels are working. She is eating well. She is afebrile. She reports she is feeling better. Bands are down today, WBC is still elevated. Pt is on steroids. CXR today shows atelectasis and increased vasculature. Objective Vital signs: Temperature 95.9 F L 05/13/17 07:49 Pulse Rate 71 05/13/17 07:49 Respiratory Rate 24 05/13/17 11:08 Blood Pressure 167/78 H 05/13/17 07:49 Pulse Oximetry 93 05/13/17 11:08 Height/Weight/BMI: Height 1.57 m Weight 85.4 kg Body Mass Index 33.5 Comments: Gen: alert and oriented. NAD Skin: warm and dry HEENT: NC/AT PERRL, EOMI, Sclera, lids and conjunctiva wnl. MMM. OP clear. Neck: No JVD, Carotids 2+ without bruits Lungs: Coarse BS, soft exp wheeze, No rales. CV: regular. 2/6 murmur RSB no radiation to carotids. Abd: soft. +BS. NT/ND MS: No edema. Good strength and ROM Neuro: No focal deficits Results - Labs CBC & Chem 7: 05/13/17 03:49 05/11/17 04:20 Labs: Laboratory Results - last 48 hr 05/12/17 05/12/17 05/13/17 09:31 19:43 03:49 WBC 19.2 H 19.7 H RBC 3.59 L 3.65 L Hgb 11.9 L 12.0 Hct 36.8 37.4 MCV 102.5 H 102.5 H MCH 33.1 32.9 MCHC 32.3 32.1 RDW Std Deviation 48.5 48.6 Plt Count 346 342 MPV 9.7 10.1 Immature Gran % (Auto) Not performed Not performed Neut % (Auto) Not performed Not performed Lymph % (Auto) Not performed Not performed [place] % (Auto) Not performed Not performed Eos % (Auto) Not performed Not performed Baso % (Auto) Not performed Not performed Neut # (Auto) Not performed Not performed Lymph # (Auto) Not performed Not performed [place] # (Auto) Not performed Not performed Eos # (Auto) Not performed Not performed Baso # (Auto) Not performed Not performed Abs Immat Gran (auto) Not performed Not performed Neutrophils % (Manual) 73.0 H 70.0 H Band Neutrophils % 17.0 H 4.0 D Lymphocytes % (Manual) 4.0 L 13.0 L Reactive Lymphs % 1.0 H Monocytes % (Manual) 5.0 13.0 H Neutrophils # (Manual) 14.0 H 13.8 H Band Neutrophils # 3.3 0.8 Lymphocytes # (Manual) 0.8 L 2.6 Abs React Lymphs (Man) 0.2 H Monocytes # (Manual) 1.0 H 2.6 H RBC Morph Comment Normal Normal Turbidity Total Bilirubin Conjugated Bilirubin Unconjugated Bilirubin Icterus Index AST ALT Alkaline Phosphatase Total Protein Albumin Globulin Albumin/Globulin Ratio Plasma Lactate 3.7 H Procalcitonin Specimen Hemolysis 05/13/17 05/13/17 03:49 03:49 WBC RBC Hgb Hct MCV MCH MCHC RDW Std Deviation Plt Count MPV Immature Gran % (Auto) Neut % (Auto) Lymph % (Auto) [place] % (Auto) Eos % (Auto) Baso % (Auto) Neut # (Auto) Lymph # (Auto) [place] # (Auto) Eos # (Auto) Baso # (Auto) Abs Immat Gran (auto) Neutrophils % (Manual) Band Neutrophils % Lymphocytes % (Manual) Reactive Lymphs % Monocytes % (Manual) Neutrophils # (Manual) Band Neutrophils # Lymphocytes # (Manual) Abs React Lymphs (Man) Monocytes # (Manual) RBC Morph Comment Turbidity < 20 Total Bilirubin < 0.10 L Conjugated Bilirubin 0.00 Unconjugated Bilirubin 0.00 Icterus Index < 2 AST 24 ALT 39 Alkaline Phosphatase 74 Total Protein 6.5 Albumin 3.2 L Globulin 3.3 Albumin/Globulin Ratio 1.0 L Plasma Lactate 2.3 H Procalcitonin 0.14 Specimen Hemolysis < 15 Microbiology Results: Microbiology 05/12/17 15:38 Sputum, Expectorated Gram Stain - Final 05/12/17 15:38 Sputum, Expectorated Sputum Culture - Preliminary Early growth Assessment and Plan (1) Hypoxia Current visit: Yes Status: Acute (2) Essential hypertension, benign Current visit: Yes Status: Acute (3) Respiratory distress Current visit: Yes Status: Acute (4) COPD exacerbation Current visit: Yes Status: Acute (5) Severe sepsis Current visit: Yes Status: Acute Assessment and Plan: 1. SIRS: SIRS criteria of leukocytosis and tachypnea, and organ dysfunction evidenced by elevated lactate and elevated bilirubin. -Probable CAP 2. Hypoxia - improving, now on RA -Encourage IS usage, Increase activity -CXR: 05/13/17: Impression: Mild pulmonary vascular congestion with left lower lobe probable platelike atelectasis. -Change HCTZ to Lasix daily 3. Respiratory distress -COPD exacerbation -Probably PNA -On azithromycin, Rocephin and resp therapy -Resp panel neg -Check sputum culture. 4. Hypertension-still running a bit high -On Norvasc 5mg daily -Start low dose Lisinopril 5. Hyperlipidemia -Pravachol 6. GERD -PPI 7. Prophylaxis -PPI, lovenox Hospital Course Summary Disclaimer: The visit summary below is not to be considered part of the above Progress Note. Hospital Course: Assessment Severe sepsis given suspected pulmonary source of infection, SIRS criteria of leukocytosis and tachypnea, and organ dysfunction evidenced by elevated lactate and elevated bilirubin. Possible CAP Hypoxia - R/o infection vs COPD exacerbation vs CHF/fluid overload. Respiratory distress COPD exacerbation Hypertension Hyperlipidemia GERD Diverticulosis Plan Admit patient to inpatient status under the hospitalist service due to severe sepsis and hypoxia. Dr. Lam attending. DuoNeb and budesonide treatments, incentive spirometry, Acapella for pulmonary hygiene Respiratory panel and influenza testing. Repeat lactate ordered per sepsis protocol. IVF's for gentle hydration. Hold after 1 L if taking po well. Rocephin and Zithromax for empiric CAP coverage. Solumedrol for COPD exacerbation. Protonix for GI prophylaxis. SCD's for DVT prophylaxis. Discussed code status with patient and her daughter. She reports there is a "DNR" on file here, but when specifically asked if she wants resuscitation in the hospital she cannot definitely answer, therefore, full code is ordered. Her daughter and son are her DPOA-H. D-Dimer was only slightly elevated. Will see how she responds to treatment before proceeding with further imaging. Case discussed with Dr. Lam, nursing staff and patient's daughter. Dr Lam to determine further plan of care. On dismissal, care to return to Dr. Alan Butt.
[2017-05-13] MEDS: LISINOPRIL 2.5 MG TABLET PO SCH (17:15)
[2017-05-13] MEDS: ASPIRIN 81 MG CHEWABLE TABLET PO SCH (20:54)
[2017-05-13] MEDS: PRAVASTATIN 40 MG TABLET PO SCH (20:55)
[2017-05-14] MEDS: PANTOPRAZOLE 20 MG TABLET PO SCH (06:01)
[2017-05-14] MEDS: ALBUTEROL/IPRATROPIUM 2.5mg-0.5mg/3ml NEB AEROSOL SCH ×4 (07:39→20:26)
[2017-05-14] MEDS: BUDESONIDE INH.SOLN 0.5mg/2ml NEB AEROSOL SCH ×2 (07:39→20:26)
[2017-05-14] MEDS: AMLODIPINE 5 MG TABLET PO SCH (08:44)
[2017-05-14] MEDS: FUROSEMIDE 40 MG TABLET PO SCH (08:44)
[2017-05-14] MEDS: ENOXAPARIN 40 MG/0.4 ML INJECTION SQ SCH (08:45)
[2017-05-14] MEDS: CEFTRIAXONE 1 G in NS 100 ML IV SCH (08:48)
[2017-05-14] MEDS: SALINE FLUSH 10ml SYRINGE IVF PRN (08:49)
[2017-05-14] MEDS: LISINOPRIL 2.5 MG TABLET PO SCH (09:42)
--- NOTE | 2017-05-14 10:13 | Progress Note ---
<Gudelia Boyer - Last Filed: 05/14/17 10:01> - Date 05/14/17 Subjective: Patient seen lying in bed. She reports she feels she is doing better. Less cough and less weakness. She just got done with therapy so is feeling "worn out." She has not had a BM for 2-3 days. Objective Vital signs: Temperature 97.2 F 05/14/17 07:21 Pulse Rate 80 05/14/17 07:21 Respiratory Rate 22 05/14/17 07:35 Blood Pressure 144/82 H 05/14/17 07:21 Pulse Oximetry 94 05/14/17 07:35 Height/Weight/BMI: Height 1.57 m Weight 87.8 kg Body Mass Index 33.5 - Constitutional Present: no acute distress, well nourished, well developed - Routine HEENT Exam Head: Present: normocephalic - Routine Respiratory Exam Present: wheezes (diffuse - right lung (pt just finished therapy - is winded)). Absent: respiratory distress - Routine Cardiovascular Exam Present: RRR, murmur (Grade 2) - Routine Abdominal Exam Present: soft, non tender - Routine Extremities Exam Present: no edema, normal capillary refill - Routine Skin Exam Present: dry, warm - Routine Neurological Exam Present: alert, oriented X3 - Routine Psychiatric Exam Present: normal affect, cooperative Results - Labs CBC & Chem 7: 05/14/17 04:16 05/14/17 04:16 Microbiology Results: Microbiology 05/12/17 15:38 Sputum, Expectorated Gram Stain - Final 05/12/17 15:38 Sputum, Expectorated Sputum Culture - Preliminary Early growth Assessment and Plan (1) Respiratory distress Current visit: Yes Status: Acute (2) Hypoxia Current visit: Yes Status: Acute (3) Essential hypertension, benign Current visit: Yes Status: Acute (4) COPD exacerbation Current visit: Yes Status: Acute (5) Severe sepsis Current visit: Yes Status: Acute Assessment and Plan: Assessment Severe sepsis on admission given suspected pulmonary source of infection, SIRS criteria of leukocytosis and tachypnea, and organ dysfunction evidenced by elevated lactate and elevated bilirubin. Possible CAP Hypoxia - R/o infection vs COPD exacerbation vs CHF/fluid overload. Respiratory distress Leukocytosis (POA) COPD exacerbation Hypokalemia (not POA) Hypertension Hyperlipidemia GERD Diverticulosis Plan Potassium slightly low today - give extra 20mEq of KCl today and continue to follow levels. Switched to Lasix from HCTZ, and Prinivil was started yesterday. CXR in am Last dose of Solumedrol was 48 hrs ago. Will initiate Prednisone 20mg po qd for wheezing/COPD. Continue breathing tx/incentive spirometry. Today is 5th/last dose of Zithromax. Give a dose of MOM now and pt ordered prune juice for lunch for constipation. Continue to work with PT/OT for strengthening. Goal is for patient to return home independently. Hospital Course Summary Disclaimer: The visit summary below is not to be considered part of the above Progress Note. Hospital Course: Assessment Severe sepsis given suspected pulmonary source of infection, SIRS criteria of leukocytosis and tachypnea, and organ dysfunction evidenced by elevated lactate and elevated bilirubin. Possible CAP Hypoxia - R/o infection vs COPD exacerbation vs CHF/fluid overload. Respiratory distress COPD exacerbation Hypertension Hyperlipidemia GERD Diverticulosis 05/10/17 - Hospital admission Admit patient to inpatient status under the hospitalist service due to severe sepsis and hypoxia. Dr. Lam attending. DuoNeb and budesonide treatments, incentive spirometry, Acapella for pulmonary hygiene Respiratory panel and influenza testing. Repeat lactate ordered per sepsis protocol. IVF's for gentle hydration. Hold after 1 L if taking po well. Rocephin and Zithromax for empiric CAP coverage. Solumedrol for COPD exacerbation. Protonix for GI prophylaxis. SCD's for DVT prophylaxis. Discussed code status with patient and her daughter. She reports there is a "DNR" on file here, but when specifically asked if she wants resuscitation in the hospital she cannot definitely answer, therefore, full code is ordered. Her daughter and son are her DPOA-H. D-Dimer was only slightly elevated. Will see how she responds to treatment before proceeding with further imaging. Case discussed with Dr. Lam, nursing staff and patient's daughter. Dr Lam to determine further plan of care. On dismissal, care to return to Dr. Alan Butt. 05/11/17 Continue same treatment plan. 05/12/17 -On solumedrol, azithromycin, Rocephin and resp therapy -Repeat CXR in am -Check sputum culture. 05/13/17 -Encourage IS usage, Increase activity -CXR: 05/13/17: Impression: Mild pulmonary vascular congestion with left lower lobe probable platelike atelectasis. -Change HCTZ to Lasix daily -Check sputum culture. Hypertension-still running a bit high -On Norvasc 5mg daily -Start low dose Lisinopril 05/14/17 Potassium slightly low today - give extra 20mEq of KCl today and continue to follow levels. Switched to Lasix from HCTZ, and Prinivil was started yesterday. CXR in am Last dose of Solumedrol was 48 hrs ago. Will initiate Prednisone 20mg po qd for wheezing/COPD. Continue breathing tx/incentive spirometry. Today is 5th/last dose of Zithromax. Give a dose of MOM now and pt ordered prune juice for lunch for constipation. Continue to work with PT/OT for strengthening. Goal is for patient to return home independently. <Candace Haskins - Last Filed: 05/14/17 18:50> - Date 05/14/17 Objective Vital signs: Temperature 97.6 F 05/14/17 15:36 Pulse Rate 79 05/14/17 16:20 Respiratory Rate 20 05/14/17 15:36 Blood Pressure 110/65 05/14/17 15:36 Pulse Oximetry 92 05/14/17 15:36 Height/Weight/BMI: Height 1.57 m Weight 87.8 kg Body Mass Index 33.5 Results - Labs CBC & Chem 7: 05/14/17 04:16 05/14/17 04:16 Microbiology Results: Microbiology 05/12/17 15:38 Sputum, Expectorated Gram Stain - Final 05/12/17 15:38 Sputum, Expectorated Sputum Culture - Preliminary Early growth Assessment and Plan (1) Hypoxia Current visit: Yes Status: Acute (2) Essential hypertension, benign Current visit: Yes Status: Acute (3) Respiratory distress Current visit: Yes Status: Acute (4) COPD exacerbation Current visit: Yes Status: Acute (5) Severe sepsis Current visit: Yes Status: Acute Assessment and Plan: 04/13/2017-I reviewed this chart, the patient history, and the [employer]'s/PA's documented findings as above. We discussed and formulated the assessment and plan as above with the additions below.-Dr. Haskins The patient states she's feeling better. She think she will be ready to go home tomorrow. She still has an occasional cough with some green phlegm but it has improved. Her voice is still hoarse, but that is improving. She is eating and drinking well. She had a bowel movement today. On exam she is alert and in no acute distress. She has some expiratory wheezing that is mild on exam and states that is chronic for her. No rhonchi are heard. She does have a hoarse voice. Cardiovascular reveals a regular rate and rhythm. Extremities are free of edema. Overall, the patient appears to be doing well. Repeat chest x-ray and lab work tomorrow. Possible dismissal to home tomorrow. Sputum culture is still pending. Hospital Course Summary Disclaimer: The visit summary below is not to be considered part of the above Progress Note.
[2017-05-14] MEDS: PredniSONE 20 MG TABLET PO SCH (11:27)
[2017-05-14] MEDS: AZITHROMYCIN IV 500 MG in NS 250ml 250 ML IV SCH (13:45)
[2017-05-14] MEDS: PRAVASTATIN 40 MG TABLET PO SCH (20:41)
[2017-05-14] MEDS: ASPIRIN 81 MG CHEWABLE TABLET PO SCH (20:41)
[2017-05-15] MEDS: PANTOPRAZOLE 20 MG TABLET PO SCH (06:12)
[2017-05-15] MEDS: BUDESONIDE INH.SOLN 0.5mg/2ml NEB AEROSOL SCH (07:01)
[2017-05-15] MEDS: ALBUTEROL/IPRATROPIUM 2.5mg-0.5mg/3ml NEB AEROSOL SCH ×3 (07:01→15:13)
[2017-05-15 07:39] VITALS: BP 150/71; TEMP 97.3
[2017-05-15] MEDS: FUROSEMIDE 40 MG TABLET PO SCH (08:10)
[2017-05-15] MEDS: PredniSONE 20 MG TABLET PO SCH (08:11)
[2017-05-15] MEDS: AMLODIPINE 5 MG TABLET PO SCH (08:11)
[2017-05-15] MEDS: LISINOPRIL 2.5 MG TABLET PO SCH (08:11)
[2017-05-15] MEDS: ENOXAPARIN 40 MG/0.4 ML INJECTION SQ SCH (08:11)
[2017-05-15] MEDS: CEFTRIAXONE 1 G in NS 100 ML IV SCH (08:12)
--- NOTE | 2017-05-15 08:33 | XRay Report ---
INDICATION: pneumonia, COPD PROCEDURE: CHEST 2-VIEWS UPRIGHT (PA & LAT) Encounter: Initial COMPARISON: May 13, 2017 FINDINGS: Improving aeration of the right lower lobe. Trace effusions. Hyperinflation. Upper lung [place] are clear. No pneumothorax. Heart size and mediastinal contours are stable. Vascularity is unchanged. Impression: Improving aeration of the right lower lobe. .
[2017-05-15 09:52] VITALS: PULSE 72
--- NOTE | 2017-05-15 10:08 | Discharge Summary ---
<Gudelia Boyer - Last Filed: 05/15/17 10:19> Discharge Information Date of admission: 05/10/17 10:49 Anticipated date of discharge: 05/15/17 Attending Physician: Candace Haskins MD Primary care physician: Alan Butt MD - Discharge Diagnosis (1) Respiratory distress Status: Acute (2) Hypoxia Status: Acute (3) Essential hypertension, benign Status: Acute (4) COPD exacerbation Status: Acute (5) CAP (community acquired pneumonia) Status: Acute Severe sepsis on admission given suspected pulmonary source of infection, SIRS criteria of leukocytosis and tachypnea, and organ dysfunction evidenced by elevated lactate and elevated bilirubin. Possible CAP Hypoxia - R/o infection vs COPD exacerbation vs CHF/fluid overload. Respiratory distress Leukocytosis (POA) COPD exacerbation Hypokalemia (not POA) Hypertension Hyperlipidemia GERD Diverticulosis - Procedures Procedures: Type of Exam(s): US echo doppler complete DATE OF PROCEDURE May 10, 2017 This is a two-dimensional echo with spectral Doppler, color-flow and M-mode. It was obtained in a patient with shortness of breath and hypoxia. Left atrial dimension is normal. Left ventricle end-diastolic dimension is normal. Left ventricle wall thickness is normal. LV systolic function is normal with ejection fraction of 70%. Right atrium is normal. Right ventricle is normal. Aortic root dimension is normal. Mitral annulus is calcified. Mitral valve leaflets are normal with trace of mitral regurgitation. Aortic valve shows fibrocalcific changes with no stenosis or insufficiency. Tricuspid valve shows mild tricuspid regurgitation with mild pulmonary hypertension with estimated pulmonary artery systolic pressure of 42. Pulmonary valve shows trace of pulmonary insufficiency. There is no pericardial effusion. IMPRESSION 1. Normal LV systolic function with ejection fraction of 70%. 2. Mitral annulus calcification with trace of mitral regurgitation. 3. Aortic sclerosis. 4. Mild tricuspid regurgitation with mild pulmonary hypertension with estimated pulmonary artery systolic pressure of 42. 5. Trace of pulmonary insufficiency. - Laboratory Labs: 05/15/17 04:37 05/15/17 04:37 Laboratory Tests 05/10/17 05/13/17 05/15/17 08:31 03:49 04:37 WBC 29.2 H* 19.7 H 21.9 H NEG respiratory viral panel - Microbiology Microbiology 05/12/17 15:38 Sputum, Expectorated Gram Stain - Final 05/12/17 15:38 Sputum, Expectorated Sputum Culture - Final Yeast Normal Respiratory Cordelia - Radiology Radiology: Date of Exam: 05/15/17 Type of Exam(s): XR chest 2V Reason for Exam(s): pneumonia, COPD ICOMPARISON: May 13, 2017 FINDINGS: Improving aeration of the right lower lobe. Trace effusions. Hyperinflation. Upper lung moncada are clear. No pneumothorax. Heart size and mediastinal contours are stable. Vascularity is unchanged. Impression: Improving aeration of the right lower lobe. Date of Exam: 05/10/17 INDICATION: dyspnea PROCEDURE: CHEST 2-VIEWS UPRIGHT (PA & LAT) COMPARISON: September 06, 2016 FINDINGS: Peripheral subpleural fibrosis, hyperinflation and COPD is redemonstrated. No definite areas of new or worsening airspace disease. There is no pleural effusion or pneumothorax. The heart size, mediastinal contours and pulmonary vascularity are stable. IMPRESSION: Stable chest with findings of COPD and pulmonary fibrosis. History of Present Illness HPI: Patient is an 87-year-old female who presents to the emergency room this morning with shortness of breath and cough. States for the last month she's had increased sputum and cough but yesterday symptoms worsen significantly with shortness of breath. On presentation to the emergency room her O2 saturations were 88%. She does not use home oxygen. Patient reports she gets pneumonia twice a year and has underlying COPD. She had a 99.8 temperature on admission. She's had increased weakness. She does live at home alone independently. Her daughter lives close and checks on her daily. Workup in the emergency room included CBC showing a white count of 29.2 with elevated bands and neutrophils. BNP elevated at 540. Chest x-ray shows no acute findings. Initial lactate was normal. The following 2 lactate levels were elevated. Objective Vital signs: Temperature 97.3 F 05/15/17 07:37 Pulse Rate 72 05/15/17 08:00 Respiratory Rate 20 05/15/17 07:37 Blood Pressure 150/71 H 05/15/17 07:37 Pulse Oximetry 94 05/15/17 07:37 Height/Weight/BMI: Height 1.57 m Weight 86.7 kg Body Mass Index 33.5 - Constitutional Present: no acute distress, well nourished, well developed - Routine Respiratory Exam Present: CTA bilaterally. Absent: wheezes - Routine Cardiovascular Exam Present: RRR, murmur - Routine Abdominal Exam Present: soft, normoactive bowel sounds, non distended. Absent: tenderness - Routine Extremities Exam Present: no edema, normal capillary refill - Routine Skin Exam Present: dry, warm - Routine Neurological Exam Present: alert, oriented X3 - Routine Lymphatic Exam Lymphatic: Absent: adenopathy - Routine Psychiatric Exam Present: normal affect, cooperative Hospital Course This is a general summary of the patient's hospital course. For more details refer to the complete medical record. Hospital course: Patient was admitted through the ER with suspected community acquired pneumonia. SHe was placed on azithromycin and ceftriaxone for antimicrobial coverage. She was given IV solumedrol for the first 48 hours and then transitioned to p.o. prednisone. She received Duoneb and budesonide nebulizer treatments QID. Her WBC was high on admission at 29.2. It never came down into the normal range, but in review of previous records, it appears this is how she trends. Suspect the steroid administration contributes to the leukocytosis. She was placed on Lovenox and SCD's for VTE prevention and Protonix for GI prophylaxis. She improved steadily over the course of her hospital stay with no complications. Her hydrochlorothiazide was replaced with Lasix and Prinivil was initiated for elevated BP readings. She was given prescriptions for cefpodxime and prednisone taper on dismissal, as well as Rx's for her new medications. She was dismissed home in stable condition with instructions to follow up with her PCP on Sunday or Sunday and to contact Dr. Butt if she would have any fever or increasing SOA. MED CHANGES: STOP HCTZ NEW CHRONIC MEDS: Prinivil 2.5mg qd Lasix 40mg qd Time spent with patient: greater than 35 minutes DVT Prophylaxis: Lovenox GI Prophylaxis: Protonix Discharge Plan - Discharge Disposition Discharge Date: 05/15/17 Disposition: 01 Discharged Home, Self-Care *Condition: Stable *Reason For Visit: Shortness of air - Discharge Medications *Discharge Medications: New Lisinopril [Prinivil] 2.5 mg PO DAILY #30 tab PredniSONE [Deltasone] 10 mg PO WB #6 tab Cefpodoxime Proxetil 200 mg PO BID #8 tab Furosemide [Lasix] 40 mg PO DAILY #30 tab Continue Amlodipine Besylate 5 mg PO DAILY #0 Potassium Chloride [Klor-Con 10] 10 meq PO DAILY #0 Pravastatin Sodium 40 mg PO HS #0 Fluticasone/Salmeterol [Advair 500-50 Diskus] 1 puff ORAL INH RTBID #0 inhaler Cyanocobalamin (Vitamin B-12) [Vitamin B-12] 1,000 unit PO DAILY Aspirin Chewable [ASA] 81 mg PO HS Acetaminophen [Acetaminophen Extra Strength] 1,000 mg PO Q6H PRN PRN Reason: Pain Albuterol Sulfate [Proair Hfa] 1 puff INH Q4H PRN #1 inhaler PRN Reason: SHORTNESS OF AIR/WHEEZING Folic Acid/Mv,Iron,Min [One Daily For Women Tablet] 1 tab PO DAILY Cholecalciferol (Vitamin D3) [Vitamin D3] 1,000 unit PO DAILY Discontinued hydroCHLOROthiazide [Hydrochlorothiazide] 25 mg PO DAILY #0 - Discharge Packet/Instructions *Diet: per speech therapy - thickened liquids *Activity: as tolerated - use walker *Pain Management/Treatment: n/a *Wound Care: n/a *Expected Signs/Symptoms: Continued improvement *Notify Physician if: you develop fever or shortness of breath *During Business Hours Contact: Dr. Butt's office *After Business Hours Contact: Dr Butt's office and follow after hour instructions. *Pending Lab/Results: No Pending Lab - Referrals/Follow Up *Referrals/Follow Up: Alan Butt MD [Family Provider] - (please schedule pt to see Dr. Butt this Sunday or next Sunday.) - Patient Handouts - Dismissal Complete Discharge Instructions are:: Complete <Candace Haskins - Last Filed: 05/15/17 13:13> Discharge Information Date of admission: 05/10/17 10:49 Attending Physician: Candace Haskins MD Primary care physician: Alan Butt MD - Discharge Diagnosis (1) Hypoxia Status: Acute (2) Essential hypertension, benign Status: Acute (3) Respiratory distress Status: Acute (4) COPD exacerbation Status: Acute (5) CAP (community acquired pneumonia) Status: Acute - Laboratory Labs: 05/15/17 04:37 05/15/17 04:37 - Microbiology Microbiology 05/12/17 15:38 Sputum, Expectorated Gram Stain - Final 05/12/17 15:38 Sputum, Expectorated Sputum Culture - Final Yeast Normal Respiratory Cordelia Objective Vital signs: Temperature 97.3 F 05/15/17 07:37 Pulse Rate 72 05/15/17 08:00 Respiratory Rate 18 05/15/17 11:31 Blood Pressure 150/71 H 05/15/17 07:37 Pulse Oximetry 93 05/15/17 11:31 Height/Weight/BMI: Height 1.57 m Weight 86.7 kg Body Mass Index 33.5 Hospital Course This is a general summary of the patient's hospital course. For more details refer to the complete medical record. Hospital course: 05/15/2017-I reviewed this chart, the patient history, and the CHERRY DIPPER's/PA's documented findings as above. We discussed and formulated the assessment and plan as above with the additions below.-Dr. Haskins Patient was seen early this afternoon accompanied by her daughter. Patient states she feels much better and feels ready to go home. She denies any shortness of breath. She has very minimal cough. She is up walking without difficulties. She's eating and drinking well. On exam she is alert and in no acute distress. Chest reveals no wheezes or rhonchi. Cardiovascular reveals a regular rate and rhythm. Abdomen is soft and nontender. Extremities are free of edema. The patient will be discharged to home on a few more days of oral antibiotics and oral steroids. She continues have an elevated white count but has no fever or bandemia. I think most of the white count elevation is secondary to steroids. She will follow-up with Dr. Butt within the next week. She will likely need a repeat CBC and basic metabolic profile at that time. He can determine at that time whether or not she should continue with Lasix and Prinivil. She will continue on thickened liquids for dysphagia. She states that she is swallowing the thickened liquids much better than thin liquids. She stated she had a long history of problems swallowing thin liquids. I will call and notify Dr. Butt of hospital findings and discharge plan. Time spent with patient: discharge greater than 30 minutes
[2017-05-15 11:33] VITALS: RESP 18; O2SAT 93
== END 2017-05-15 16:15 | disposition home or self-care (01) | DRG 871 ==
LOC: ED 08:13 → MED 10:49 → SUATTDRO 10:49 → MED 11:05
PROVIDERS: ADMIT Family Medicine; ATTEND Internal Medicine